=== PATIENT | male | born 1965 | race Caucasian/White ===

== ENCOUNTER → 2018-03-12 01:25 | Outpatient (CLI) | payer MEDICAID, SELFPAY ==
[2018-03-12] MEDS: Omnipaque 350 MG/ML 50 ML BTL IJ (08:31)
[2018-03-12] MEDS: Breeza Beverage 473 ML BTL PO ×2 (08:32)
--- NOTE | 2018-03-12 09:30 | DI.RPTCT_ITS ---
SYMPTOM/DIAGNOSIS: ABD PAIN R10.9, ? DIVERTICULAR DISEASE OR KIDNEY STONE LT SIDE CT ABDOMEN AND PELVIS: Images were performed before and after IV contrast. Oral contrast was administered prior to the exam. The noncontrast images show calcifications within calyces in the upper, mid and lower poles of the left kidney No ureteral or bladder calculi are seen. Right renal cysts are noted. The nephrograms are symmetric bilaterally. The prostate is enlarged. There is a small left fatty containing inguinal hernia. The liver shows fatty infiltration. The gallbladder, spleen, pancreas and adrenals are unremarkable. There is no bowel dilatation or inflammatory changes. There is no evidence of diverticulitis. The aorta shows mild calcification and is normal in diameter. Degenerative disc changes are noted greatest at L4-5. IMPRESSION: Nonobstructing left renal calculi. No evidence of diverticular disease.
[2018-03-12] MEDS: Omnipaque 350 MG/ML 100 ML BTL IJ (09:38)
== END ==
PROVIDERS: PCP Family Medicine; Visit Provider Neuromusculoskeletal Medicine & OMM
DX: R10.32 Left lower quadrant pain (principal); N20.0 Calculus of kidney; N40.0 Benign prostatic hyperplasia without lower urinary tract symptoms; K40.90 Unilateral inguinal hernia, without obstruction or gangrene, not specified as recurrent; K76.0 Fatty (change of) liver, not elsewhere classified
CPT/HCPCS: 74178; J3490; Q9967

== ENCOUNTER 2018-11-16 15:15 | Emergency (ER) | payer MEDICAID, SELFPAY ==
[2018-11-16 15:18] VITALS: BP 133/88; PULSE 81; RESP 18; TEMP 37.2; O2SAT 96
--- NOTE | 2018-11-16 15:29 | W.ED.GENAD ---
Discharge Plan Disposition Patient Disposition: HOME Condition: Improving Discharge Details Chief Complaint: EarProblem Clinical Impression: Impacted cerumen of left ear, Ear pain, left, Decreased hearing of left ear Primary Care Provider: Unknown,Unknown ED Provider: Laurence Jacinto Home Meds and New Rx's Prescriptions: New amoxicillin 500 mg capsule 500 mg PO TID 7 Days Qty: 21 RF: 0 Continued omeprazole 20 MG tablet,delayed release (DR/EC) 20 mg PO DAILY RF: 0 Discharge Instructions Instructions: Cerumen Impaction (ED), Earache (ED) Additional Instructions: Alternate Tylenol and Motrin as needed and directed for pain. Continue to use hydrogen peroxide or Debrox eardrops to help with softening earwax. If you have persistent or worsening pain even with removal of earwax, you may start the antibiotics. Follow-up with your primary care doctor as scheduled next week for reevaluation. Return to the emergency department with any worsening or concerning symptoms Discharge Data Discharge Physician: Laurence Jacinto Medical Decision Making 53-year-old male presents with decreased hearing in left ear for 5 days and left ear pain since yesterday. Vitals within normal limits. Patient appears nontoxic. There is bilateral cerumen impaction. No signs of otitis externa. Nurse attempted to soak ears with hydrogen peroxide cotton ball and then attempted to flush with saline and hydrogen peroxide with only minimal cerumen removed. Still unable to view L TM after flushing. No complaints with right ear. Discussed with patient that his pain could be due to pressure from the cerumen impaction or could be due to an otitis media. Patient feels some relief after some removal of cerumen. Patient instructed to continue hydrogen peroxide or Debrox drops to help soften the wax. If the symptoms do not improve or worsen, he can start the antibiotics. He is instructed to alternate Tylenol and Motrin, follow-up with his scheduled appointment with his primary care doctor next week and return here at any time with any concerns. HPI General Mode of arrival: ambulatory. Date/Time Provider Initiated Documentation: 11/16/18 15:15. Limitations to Documentation: no limitations. Information obtained by: patient. HPI Narrative: Pt is a 53yo M who presents to the ED with complaint of decreased hearing in L ear for the last 5 days and L ear pain since yesterday. 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 He states he also has an issue with cerumen impaction. Patient denies any fever, tenderness to the outside of the ear, or ear drainage. Related Data Home Medications Medication Instructions Recorded Confirmed omeprazole 20 mg PO DAILY 02/03/18 11/16/18 amoxicillin 500 mg PO TID 7 Days #21 cap 11/16/18 Previous Rx's Medication Instructions Recorded amoxicillin 500 mg PO TID 7 Days #21 cap 11/16/18 Allergies Allergy/AdvReac Type Severity Reaction Status Date / Time No Known Allergies Allergy Unverified 11/16/18 15:27 General Stated Complaint: EarProblem ELLE: 4 Review of Systems Review of Systems All systems reviewed & are unremarkable except as noted in HPI and below Constitutional Reports as per HPI, Denies chills and Denies fever(s) Eyes Denies blurry vision ENT Denies dizziness, Reports otalgia, Reports hearing loss, Denies sore throat and Denies throat swelling Cardiovascular Denies chest pain and Denies dyspnea Respiratory Denies cough and Denies dyspnea Gastrointestinal Denies abdominal pain, Denies diarrhea and Denies vomiting Genitourinary Denies hematuria and Denies dysuria Musculoskeletal Denies back pain and Denies numbness Integumentary/Breasts Denies lesions and Denies rash Neurologic Denies dizziness, Denies focal weakness and Denies numbness Allergic/Immunologic Denies throat swelling [facility] Medical History No significant past medical history (Acute) Surgical History No significant past surgical history (Acute) Social History Smoking/Tobacco Use Status: Never Alcohol Intake: current Alcohol Intake frequency: a few times a week Alcohol type: hard liquor Drug use: Never Do you feel safe at home: Yes Do you feel safe in your relationship?: Yes Exam Const General: cooperative, healthy appearing and no acute distress HENMT Head: normal to inspection Ears: hearing grossly normal bilaterally, external ears normal, EAC's normal (no tenderness to palpation of tragus or pulling auricle on Left), mastoids normal, no periauricular adenopathy, unable to visualize TM bilaterally and other (unable to view TM b/l due to cerumen impaction) General nose exam: external nose normal Face and sinus: normal facial exam Mouth: oral mucosae normal Teeth and gingiva: dentition normal Throat: posterior oropharynx normal Eyes General: appearance normal, both eyes and all related structures Neck Neck: normal visual inspection Resp Effort & Inspection: normal respiratory effort and able to speak in complete sentences Cardio Rate: regular rate Skin General skin exam: no rashes or lesions noted Neuro General: alert, awake and oriented x3 Motor: muscle tone normal throughout Extrem General: normal to inspection and full ROM Psych Appearance: grossly normal Affect: normal affect Course Vital Signs Temperature 99.0 F 11/16/18 15:18 Pulse 81 11/16/18 15:18 Respiratory Rate 18 11/16/18 15:18 Blood Pressure 133/88 11/16/18 15:18 Pulse Oximetry 96 11/16/18 15:18 Temperature 99.0 F 11/16/18 15:18 Temperature Source Skin 11/16/18 15:18 Pulse 81 11/16/18 15:18 Respiratory Rate 18 11/16/18 15:18 Respiratory Effort Non-Labored 11/16/18 15:22 Blood Pressure 133/88 11/16/18 15:18 Blood Pressure Position Sitting 11/16/18 15:18 Pulse Oximetry 96 11/16/18 15:18 Oxygen Delivery Method Room Air 11/16/18 15:18 Oxygen Flow Rate 0 11/16/18 15:18
--- NOTE | 2018-11-16 15:32 | ED.GENADUL_ITS ---
Discharge Plan Disposition Patient Disposition: HOME Condition: Improving Discharge Details Chief Complaint: EarProblem Clinical Impression: Impacted cerumen of left ear, Ear pain, left, Decreased hearing of left ear Primary Care Provider: Unknown,Unknown ED Provider: Laurence Jacinto Home Meds and New Rx's Prescriptions: New amoxicillin 500 mg capsule 500 mg PO TID 7 Days Qty: 21 RF: 0 Continued omeprazole 20 MG tablet,delayed release (DR/EC) 20 mg PO DAILY RF: 0 Discharge Instructions Instructions: Cerumen Impaction (ED), Earache (ED) Additional Instructions: Alternate Tylenol and Motrin as needed and directed for pain. Continue to use hydrogen peroxide or Debrox eardrops to help with softening earwax. If you have persistent or worsening pain even with removal of earwax, you may start the antibiotics. Follow-up with your primary care doctor as scheduled next week for reevaluation. Return to the emergency department with any worsening or concerning symptoms Discharge Data Discharge Physician: Laurence Jacinto Medical Decision Making 53-year-old male presents with decreased hearing in left ear for 5 days and left ear pain since yesterday. Vitals within normal limits. Patient appears nontoxic. There is bilateral cerumen impaction. No signs of otitis externa. Nurse attempted to soak ears with hydrogen peroxide cotton ball and then attempted to flush with saline and hydrogen peroxide with only minimal cerumen removed. Still unable to view L TM after flushing. No complaints with right ear. Discussed with patient that his pain could be due to pressure from the cerumen impaction or could be due to an otitis media. Patient feels some relief after some removal of cerumen. Patient instructed to continue hydrogen peroxide or Debrox drops to help soften the wax. If the symptoms do not improve or worsen, he can start the antibiotics. He is instructed to alternate Tylenol and Motrin, follow-up with his scheduled appointment with his primary care doctor next week and return here at any time with any concerns. HPI General Mode of arrival: ambulatory . Date/Time Provider Initiated Documentation: 11/16/18 15:15 . Limitations to Documentation: no limitations . Information obtained by: patient . HPI Narrative: Pt is a 53yo M who presents to the ED with complaint of decreased hearing in L ear for the last 5 days and L ear pain since yesterday. 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 He states he also has an issue with cerumen impaction. Patient denies any fever, tenderness to the outside of the ear, or ear drainage. Related Data Home Medications Medication Instructions Recorded Confirmed omeprazole 20 mg PO DAILY 02/03/18 11/16/18 amoxicillin 500 mg PO TID 7 Days #21 cap 11/16/18 Previous Rx's Medication Instructions Recorded amoxicillin 500 mg PO TID 7 Days #21 cap 11/16/18 Allergies Allergy/AdvReac Type Severity Reaction Status Date / Time No Known Allergies Allergy Unverified 11/16/18 15:27 General Stated Complaint: EarProblem ELLE: 4 Review of Systems Review of Systems All systems reviewed & are unremarkable except as noted in HPI and below Constitutional Reports as per HPI, Denies chills and Denies fever(s) Eyes Denies blurry vision ENT Denies dizziness, Reports otalgia, Reports hearing loss, Denies sore throat and Denies throat swelling Cardiovascular Denies chest pain and Denies dyspnea Respiratory Denies cough and Denies dyspnea Gastrointestinal Denies abdominal pain, Denies diarrhea and Denies vomiting Genitourinary Denies hematuria and Denies dysuria Musculoskeletal Denies back pain and Denies numbness Integumentary/Breasts Denies lesions and Denies rash Neurologic Denies dizziness, Denies focal weakness and Denies numbness Allergic/Immunologic Denies throat swelling [facility] Medical History No significant past medical history (Acute) Surgical History No significant past surgical history (Acute) Social History Smoking/Tobacco Use Status: Never Alcohol Intake: current Alcohol Intake frequency: a few times a week Alcohol type: hard liquor Drug use: Never Do you feel safe at home: Yes Do you feel safe in your relationship?: Yes Exam Const General: cooperative, healthy appearing and no acute distress HENMT Head: normal to inspection Ears: hearing grossly normal bilaterally, external ears normal, EAC's normal (no tenderness to palpation of tragus or pulling auricle on Left), mastoids normal, no periauricular adenopathy, unable to visualize TM bilaterally and other (unable to view TM b/l due to cerumen impaction) General nose exam: external nose normal Face and sinus: normal facial exam Mouth: oral mucosae normal Teeth and gingiva: dentition normal Throat: posterior oropharynx normal Eyes General: appearance normal, both eyes and all related structures Neck Neck: normal visual inspection Resp Effort & Inspection: normal respiratory effort and able to speak in complete sentences Cardio Rate: regular rate Skin General skin exam: no rashes or lesions noted Neuro General: alert, awake and oriented x3 Motor: muscle tone normal throughout Extrem General: normal to inspection and full ROM Psych Appearance: grossly normal Affect: normal affect Course Vital Signs Temperature 99.0 F 11/16/18 15:18 Pulse 81 11/16/18 15:18 Respiratory Rate 18 11/16/18 15:18 Blood Pressure 133/88 11/16/18 15:18 Pulse Oximetry 96 11/16/18 15:18 Temperature 99.0 F 11/16/18 15:18 Temperature Source Skin 11/16/18 15:18 Pulse 81 11/16/18 15:18 Respiratory Rate 18 11/16/18 15:18 Respiratory Effort Non-Labored 11/16/18 15:22 Blood Pressure 133/88 11/16/18 15:18 Blood Pressure Position Sitting 11/16/18 15:18 Pulse Oximetry 96 11/16/18 15:18 Oxygen Delivery Method Room Air 11/16/18 15:18 Oxygen Flow Rate 0 11/16/18 15:18
== END 2018-11-16 16:27 | disposition home or self-care (01) ==
PROVIDERS: Emergency Provider Physician Assistant
DX: H91.92 Unspecified hearing loss, left ear (principal); H92.02 Otalgia, left ear; H61.23 Impacted cerumen, bilateral
CPT/HCPCS: 69209; 99283

== ENCOUNTER 2021-06-14 20:57 | Outpatient (REF) | payer MEDICAID, SELFPAY ==
[2021-06-14 23:52] LABS: C Diff PCR Negative (Negative)
[2021-06-15 21:34] LABS: Campylobacter PCR Negative (Negative); Salmonella PCR Negative (Negative); Shiga Toxin PCR Negative (Negative); Shigella/Enteroinvasive Ecoli Negative (Negative)
== END 2021-06-14 20:58 | disposition home or self-care (01) ==
LOC: LBN 20:57
PROVIDERS: PCP Neuromusculoskeletal Medicine & OMM; Visit Provider Surgery
DX: K52.9 Noninfective gastroenteritis and colitis, unspecified; R10.32 Left lower quadrant pain; R14.0 Abdominal distension (gaseous)
CPT/HCPCS: 87493; 87505; 87177

== ENCOUNTER 2021-06-20 02:20 | Outpatient (CLI) | payer MEDICAID, SELFPAY ==
--- OUTSIDE RECORDS SUMMARY | 2021-06-20 02:22 | XMS_ITS | Encounter Summary ---
:1965 Author Care Team Providers Name Role Phone Fabio Arias DO Primary Care Provider Unavailable Reason for Visit Pain of right shoulder joint; Gastroesop hageal reflux disease; skin lesion; suture removal Assessment and Plan 1. Pain of right shoulder joint Slightly better with steroid b ut massage really helped. He is scheduled for another. Stretches reviewed. Overall imp roved. 2. Gastroesophageal reflux disea se Lengthy discussion about his g astroesophageal reflux disease. He states he takes Dexilant 30 mg daily but at times he needs to take 60 mg noted provide him with relief. I stated that every onc e in a while that is okay but really nee ds to stay with 30 mg. We discussed dietary habits along with stress and anxiety as a possible source of his reflux. I do not see that he has a hiatal hernia. Ult imately I think he needs an EGD to see i f he has the beginnings of Dodd's esophagus. At the end of the visit he did note that he went on the Omni diet several years ago and that his reflux disappeare d. I strongly suggest that if he can fin d a dietary plan that helps relieve his reflux and provide him with a nutrition and energy throughout the day that he needs that he should go back to that and slo wly add or subtract what he needs to fritz p the reflux under control. He agrees that this might be a good idea and will try it. In the meantime will refer him to a surgeon to see if they are in agreement that a possible EGD will be recommended. I did offer barium swallow but I am not sure if this would identify beginnings of Dodd's esophagus. Kee states that he has had reflux most of his life. ? surgery center referral 3. Removal of suture 4 sutures removed from last we ek's procedure. Removed without difficulty. Wound looks to be well-healed. He knows to call should by chance the incision reopen or become infected. Discussion Note: None recorded.Patient educational handouts: No information available. Plan of Care Reminders Provider Appointments None ? ? recorded. Lab None ? ? recorded. Referral [facility] Referral 04/13/2021 Group Procedures None ? ? recorded. Surgeries None ? ? recorded. Imaging None ? ? recorded. Medications Name Start Date ? ? cyclobenzaprine 5 mg tablet ? TAKE ONE TO TWO TABLETS BY MOUTH AT BEDTIME FOR MUSCL E SPASMS Dexilant 30 mg capsule, delayed release ? TAKE ONE CAPSULE BY MOUTH EVERY DAY Medications Administered None recorded. Vitals Weight Blood Pressure 184 lbs 124/78 mm[Hg] Results Lab Results None recorded. Allergies Code Code System Name Reaction Severity Onset NKDA ? ? ? Problems Name Status Onset Date Source ? Cellulitis of Face Active 05/09/2019 ? Depressive Disorder Active ? History Allergic Rhinitis Active ? History Gastroesophageal Reflux Disease Active ? History Hyperplasia of Prostate Active ? History Neck Pain Active ? History Low Back Pain Active ? History Abdominal Pain Active ? History Pain of Right Shoulder Joint Active ? His tory Impotence of Organic Origin Active ? Hist ory Procedures None recorded. Vaccine List Vaccine Type Td (adult), adsorbed 07/23/2000 Tdap 01/21/2013 Social History Tobacco Smoking Status Never Smoker What was the date of your most recent tobacco screening? What is your code status? 0 Functional Status Unknown. Past Encounters 04/13/2021 Pain of Right Shoulder Joint; Gastroesop hageal Reflux Disease; Removal of Suture Fabio Arias, DO: [address] [place] [address], Ph. 04/06/2021 Pain of Right Shoulder Joint; Lipoma of Skin Fabio Arias, DO: [address] [place] [address], Ph. 03/23/2021 Neck Pain; Gastroesophageal Reflux Disea se; Pain of Right Shoulder Joint; Abdominal Pain; Impacted Cerumen of Bilateral Ears; Sebaceous Cyst of Skin Fabio Villegas Juana, DO: [address] [place] [address], Ph. History of Present Illness ? Reflux/GERD Reported By: Patient HPI: Symptoms heartburn. Severity : same. Context: non-smoker. Alleviating Factors: medication Notes: Ongoing. Remotely/relatively controlled by the use of Dexilant. ? Cyst Reported By: Patient HPI: Location: neck. Size ; Lipom a which was removed last week. Healing well. Needs sutures removed today. Symptoms not painful, no redness ? Shoulder Reported By: Patient HPI: Hand Dominance: right. Locat ion: right. Quality: throbbing. Duration: weeks. Timing: acute. Contex t: overuse. Aggravating Factors: ROM. Associated Symptoms: no numb ness, no tingling, radiation down arm Notes: Improving with massage Note: Follow up appt today for suture removal.

Review of Systems: ROS as noted in the HPI Review of Systems ? Comprehensive General Adult ROS Reported By: Patient Cardiovascular: Cardiovascular: no chest demar n, no shortness of breath when walking, no shortness of breath when lying down, no palpitations Respiratory: Respiratory: no cough, no wh eezing, no shortness of breath Gastrointestinal: Gastrointestinal: GERD; Long standing reflux that is helped by utilizing Dexilant 30 mg onc e a day. On occasion he uses 2 which helps. He is question if he could go to every day Genitourinary: Genitourinary: no incontinen ce, no difficulty urinating, no increased frequency Musculoskeletal: Musculoskeletal: no arthralg ias/joint pain, no back pain, no swelling in the extremities Psychiatric: Psych: no depression, no anx iety, no memory loss, no agitation Physical Exam ? Comprehensive PE (male) Reported By: Patient Constitutional: General Appearance: healthy- appearing, well-nourished, well-developed. Level of Dis tress: no apparent distress. Ambulation: ambulating normally Skin: Inspection and palpation: le stefany; Sutures are ready to removed today, mild erythema but no sign of infection, skin well approximated and healing Neurologic: Orientation: oriented to per son, place, time and situation. Memory: recent memory normal, remote memory normal Psychiatric: Insight: good insight, good judgment. Mental Status: normal mood, normal affect
--- OUTSIDE RECORDS SUMMARY | 2021-06-20 02:22 | XMS_ITS | Encounter Summary ---
:1965 Author Care Team Providers Name Role Phone Fabio Arias DO Primary Care Provider Unavailable Reason for Visit Pain of right shoulder joint; Gastroesop hageal reflux disease; cyst/abscess Assessment and Plan 1. Pain of right shoulder joint Slightly better with steroid b ut massage really helped. He is scheduled for another. Stretches reviewed. Overall imp roved. 2. Lipoma of skin Left upper trapezius region. M edial upper scapula. Lipoma. Removed without incident. Return in 5 to 7 days for sutu re removal Discussion Note: None recorded.Patient educational handouts: No information available. Plan of Care Reminders Provider Appointments None ? ? recorded. Lab None ? ? recorded. Referral None ? ? recorded. Procedures None ? ? recorded. Surgeries None ? ? recorded. Imaging None ? ? recorded. Medications Name Start Date ? ? cyclobenzaprine 5 mg tablet ? TAKE ONE TO TWO TABLETS BY MOUTH AT BEDTIME FOR MUSCL E SPASMS Dexilant 30 mg capsule, delayed release ? TAKE ONE CAPSULE BY MOUTH EVERY DAY Medications Administered None recorded. Vitals Weight Blood Pressure 182 lbs 16 oz 128/80 mm[Hg] Results Lab Results None recorded. Allergies [...] status? 0 Functional Status Unknown. Past Encounters 04/06/2021 Pain of Right Shoulder Joint; Lipoma of Skin Fabio Arias, DO: [address] [place] [address], [place] [address], Ph. 03/23/2021 Neck Pain; Gastroesophageal Reflux Disea se; Pain of Right Shoulder Joint; Abdominal Pain; Impacted Cerumen of Bilateral Ears; Sebaceous Cyst of Skin Fabio Nelly Arias, DO: [address] [place] [address], [place] [address], Ph. History of Present Illness ? Cyst Reported By: Patient HPI: Location: neck. Size increas ing in size. Symptoms not painful, no redness, drainage Note: Follow up appt today.Review of Systems: ROS as noted in the HPI Review of Systems None recorded. Physical Exam ? Comprehensive PE (male) Reported By: Patient Constitutional: General Appearance: healthy- appearing, well-nourished, well-developed. Level of Dis tress: no apparent distress. Ambulation: ambulating normally Skin: Inspection and palpation: le stefany; lipoma on the left upper back over the medial upper scapula reg ion Neurologic: Orientation: oriented to per son, place, time and situation. Memory: recent memory normal, remote memory normal Psychiatric: Insight: good insight, good judgment. Mental Status: normal mood, normal affect
--- OUTSIDE RECORDS SUMMARY | 2021-06-20 02:22 | XMS_ITS | Encounter Summary ---
:1965 Author Care Team Providers Name Role Phone Faibo Arias DO Primary Care Provider Unavailable Reason for Visit Gastroesophageal reflux disease; Right s houlder problem Assessment and Plan 1. Neck pain Gentle stretching.Demonstrated in depth. Patient to do these several times a day. Return to clinic in 2 weeks 2. Gastroesophageal reflux disea se Dion seems to be working. Co ntinue as needed. Check H. pylori breath test. ? H pylori urea breath test, co2 infrared 3. Pain of right shoulder joint Trial of prednisone and a musc le relaxant. This will also help with the neck. Exam is relatively benign. Again s carmenza demonstrated. ? prednisone 50 mg tablet ? cyclobenzaprine 5 mg table t 4. Abdominal pain labs ordered and drawn today. Consideration for muscular imbalance vs GERd vs adhesions. Patient has had this abdom inal pain for several years. He notes it improves drastically when he gets on his rowing machine. I am of the belief after the exam that he has a muscular skeletal and balance wearing his abdominal muscles due to the nature of his work are more taut john n his back muscles. I think this causes of imbalance which radiates into the abdome n his pain. His exam is relatively benign. Reviewed the CAT scan that he had over a year ago which showed no current pathology. We will recheck his labs. He was spent 3 weeks on his rowing machine and see if his abdominal pain resolves and if so when h e has his answer. If not we can continue to investigate. There is always a question of adhesions but it is quite doubtful. ? hepatic function panel, se rum ? venipuncture 5. Impacted cerumen of bilateral ears Removal of impacted cerumen. ? cerumen removal (PROC) - U nsuccessful bilaterally. Told to get debrox 6. Sebaceous cyst of skin On the back. Discussion Note: None recorded.Patient educational handouts: No information available. Plan of Care Reminders Provider Appointments None recorded. ? ? Lab H Pylori Urea Nor Country Breath Test, Co2 Infrared 03/23/2021 Hospit al Lab (Internal) ? Hepatic North Cou ntry Function Panel, Serum 03/23/2021 Hospital L ab (Internal) ? Venipuncture P_nc Primary 03/23/2021 Care [place] [facility] Referral None recorded. ? ? Procedures Cerumen Removal ? (PROC) 03/23/2021 Surgeries None recorded. ? ? Imaging None recorded. ? ? Medications Name Start Date ? ? cyclobenzaprine 5 mg tablet ? TAKE ONE TO TWO TABLETS BY MOUTH AT BEDTIME FOR MUSCL E SPASMS Dexilant 30 mg capsule, delayed release ? TAKE ONE CAPSULE BY MOUTH EVERY DAY Medications Administered None recorded. Vitals Weight Blood Pressure 181 lbs 16 oz 120/80 mm[Hg] Results Lab Results Date Name Specimen Result Interpretation Description Value Range Status Address ? 03/23/2021 Hepatic S ? Tbil 0.8 mg/dL 0.2-1.3 Final N orth Function mg/dL Country Panel, Serum Hosp ital Lab (Internal) : [address] ? ? S ? Dbil 0.0 mg/dL 0.0-0.3 Final North mg/dL [facility] L ab (Internal) : [address] ? ? S ? Alp 66 U/L 50-136 Final [place] U/L [facility] L ab (Internal) : [address] ? ? S ? Alt (Sgpt) 48 U/L 21-72 Final [place] U/L [facility] L ab (Internal) : [address] t ? ? S ? Ast (Sgot) 34 U/L 17-59 Final [place] U/L [facility] L ab (Internal) : [address] t ? ? S ? Ggt 55 U/L 15-73 Final [place] U/L [facility] L ab (Internal) : [address] ? ? S ? Tp 7.2 g/dL 6.3-8.2 Final North g/dL [facility] L ab (Internal) : [address] ? ? S ? Alb 4.4 g/dL 3.5-5.0 Final North g/dL [facility] L ab (Internal) : [address] 03/23/2021 Venipuncture Blood ? Location Left ? ? P_nc Primary venous Antecubital Care [place]: [address], [place] ? ? Blood ? Needle 21g ? ? P_nc Prim brandy venous Vacutainer Care [place]: [address] [facility], [place] ? ? Blood ? Number of 1 ? ? P_nc P rimary venous Attempts Care [place]: [address] [facility] [address], [place] ? ? Blood ? Successful Yes ? ? P_nc Primary venous Care [place]: [address] [facility], [place] ? ? Blood ? Dressing Pressure ? ? P_nc Primary venous Band-aid Care Applied [place]: [address] [facility], [place] Allergies Code Code System Name Reaction Severity [...] status? 0 Functional Status Unknown. Past Encounters 03/23/2021 Neck Pain; Gastroesophageal Reflux Disea se; Pain of Right Shoulder Joint; Abdominal Pain; Impacted Cerumen of Bilateral Ears; Sebaceous Cyst of Skin Fabio Arias, DO: [address] [place] [address], Ph. History of Present Illness ? Reflux/GERD Reported By: Patient HPI: Symptoms heartburn. Severity : worsening. Context: non-smoker ? Shoulder Reported By: Patient HPI: Hand Dominance: right. Locat ion: right. Quality: throbbing. Duration: 1 weeks. Timing: acute. Contex t: overuse. Alleviating Factors: nothing helps. Aggravating Factors: ROM. Associated Symptoms: no numbness, no tingling, radiation down arm Review of Systems: ROS as noted in the HPI Review of Systems None recorded. Physical Exam ? Comprehensive PE (male) Reported By: Patient Constitutional: General Appearance: healthy- appearing, well-nourished, well-developed. Level of Dis tress: no apparent distress. Ambulation: ambulating sharon lly Respiratory: Respiratory effort: unlabore d respirations, no use of accessory muscles. RUL Auscultation: b reath sounds normal, good air movement, clear to auscultation except as noted, no wheezing, no rales/crackles, no rhonchi. RLL Auscultation: breath sounds normal, good air movement, clear to auscultation except as noted, no wheezing, no rales/crackles, no rhonchi. CARLA Auscultation: breath sounds normal, good air move ment, clear to auscultation except as noted, no wheezing, no rales /crackles, no rhonchi. LLL Auscultation: breath sounds normal, good air movement, clear to auscultation except as noted , no wheezing, no rales/crackles, no rhonchi Cardiovascular: Apical Impulse: not displace d. Heart Auscultation: regular rate and rhythm (RRR), normal S1, nor mal S2, no murmurs, no rubs, no gallops. Neck vessels: no ca rotid bruits. Pulses including femoral / pedal: normal throughout Gastrointestinal: Bowel Sounds: LLQ bowel soun ds normal, LUQ bowel sounds normal, RUQ bowel sounds normal, RLQ bow el sounds normal. Inspection and Palpation: LLQ no mass, LLQ rebound tenderness, LLQ guarding, epigastric tenderness, supra pubic tenderness, costovertebral (CVA) tenderness: left; No masses palpated pulsatile or otherwise. Mild rebound in the left lower qu adrant.. Liver: non-tender. Spleen: non-tender. Hernia: none pal pable Male : Penis: no lesion, no dischar ge. Scrotum: no tenderness of cord, no hydrocele, no spermatocele, no varicocele, no testicular mass Musculoskeletal:: Motor Strength and Tone: nor mal tone. Joints, Bones, and Muscles: ; Right shoulder with full ran ge of motion. Good muscle strength. Good sensation. Excellent gr ip strength. Reflexes intact.Neck with full range of motion some hy pertonicity of the paracervical muscles but otherwise no crepitance no palpable step-off of the midline. Extremities: no edema Skin: Inspection and palpation: ; Sebaceous cyst on right upper chest roughly 1 cm in diameter. Neurologic: Orientation: oriented to per son, place, time and situation. Memory: recent memory normal, remote memory normal Psychiatric: Insight: good insight, good judgment. Mental Status: normal mood, normal affect
--- OUTSIDE RECORDS SUMMARY | 2021-06-20 02:22 | XMS_ITS ---
:1965 Author Care Team Providers Name Role Phone BEATRIZ WHEELER, DO Primary Care Provider Unavailable Allergies Code Code System Name Reaction Severity Status Onset NKDA ? Medications Name Status Start Date Stop Date ? ? amoxicillin 875 mg tablet Completed ? 2018 Take 1 tablet every 12 hours by oral route for 10 days. Augmentin 875 mg-125 mg tablet Completed ? 08/17/2018 Take 1 tablet every 12 hours by oral route for 7 days. cyclobenzaprine 5 mg tablet Active ? Not available TAKE ONE TO TWO TABLETS BY MOUTH AT BEDTIME FOR MUSCLE SPASMS Dexilant 30 mg capsule, delayed release Active ? Not available TAKE ONE CAPSULE BY MOUTH EVERY DAY dicyclomine 20 mg tablet Completed ? 019 Take 1 tablet 4 times a day by oral route for 30 days. erythromycin 5 mg/gram (0.5 %) eye ointment Completed 07/2408/25/2011 1 Ointment: q 3hrs see comments loratadine 10 mg tablet Completed 06/14/2011 08/18/19 12 1 Tablet: as needed nabumetone 500 mg tablet Completed 05/30/2012 013 1 (one) Tablet: bid with meals omeprazole Completed ? 05/06/2019 omeprazole 20 mg capsule,delayed release Completed 011 08/18/[address]: daily prednisone 50 mg tablet Completed ? 04/13/20 21 TAKE ONE TABLET BY MOUTH EVERY DAY FOR 5 DAYS Prozac 20 mg capsule Completed 06/14/2011 08/18/2011 1 Capsule: daily sumatriptan 50 mg tablet Completed ? 019 Take 1 tablet by oral route for 20 days. Problems Name Status Onset Date Source ? [...] Organic Origin Active ? Hist ory Procedures Date Name Performed by ? 02/25/2018 CT, Abdomen + Pelvis, W/wo Contrast Nort h [facility] Radiology (Internal) [address] [place] [id number] (Work Place) Results Lab Results Date Name Specimen Result Interpretation Description Value Range Status Address ? 03/23/2021 Hepatic S ? Tbil 0.8 mg/dL 0.2-1.3 Final N orth Function mg/dL [facility] Panel, Serum Hosp ital Lab (Internal) : [address] ? ? S ? Dbil 0.0 mg/dL 0.0-0.3 Final North mg/dL [facility] L ab (Internal) : [address] ? ? S ? Alp 66 U/L 50-136 Final [place] U/L [facility] L ab (Internal) : [address] ? ? S ? Alt 48 U/L 21-72 U/L Final [place] (Sgpt) [facility] L ab (Internal) : [address] ? ? S ? Ast 34 U/L 17-59 U/L Final [place] (Sgot) [facility] L ab (Internal) : [address] ? ? S ? Ggt 55 U/L 15-73 U/L Final [facility] L ab (Internal) : [address] ? ? S ? Tp 7.2 g/dL 6.3-8.2 Final North g/dL [facility] L ab (Internal) : [address] ? ? S ? Alb 4.4 g/dL 3.5-5.0 Final North g/dL [facility] L ab (Internal) : [address] 03/23/2021 Venipuncture Blood ? Location Left ? ? P_nc Primary venous Antecubita Care l [place]: [address], [place] ? ? Blood ? Needle 21g ? ? P_nc Prim brandy venous Vacutainer Care [place]: [address], [place] ? ? Blood ? Number 1 ? ? P_nc Prim brandy venous of Care Attempts [place]: [address], [place] ? ? Blood ? Successf Yes ? ? P_nc Pr imary venous ul Care [place]: [address] [facility], [place] ? ? Blood ? Dressing Pressure ? ? P_nc Primary venous Band-aid Care Applied [place]: [address] [place] 04/10/2018 Fecal Occult ? Occult negative ? ? P_nc Primary Blood X 3, Blood 1 Care Stool [place]: [address] [facility], [place] ? ? ? Occult negative ? ? P_nc Pr imary Blood 2 Care [place]: [address] [facility], [place] ? ? ? Occult negative ? ? P_nc Pr imary Blood 3 Care [place]: [address] [facility] [place] 04/09/2018 Iga, S - Iga 128 mg/dL 85-499 Final Nor th Quantitative, mg/dL Cou ntr Serum Hospital L ab (Internal) : [address] 04/09/2018 Tissue S - Tissue <1.2 U/mL <4.0 Final No rth Transglutamina Transglut (negative Country se IgA Ab, aminase ) U/mL Hospi chyna Lab Quantitative, Ab, IgA, ( Internal): Serum S [address] 04/09/2018 Venipuncture Blood ? Location Left ? ? P_nc Primary venous Antecubita Care l [place]: [address] [facility], [place] ? ? Blood ? Needle 21g ? ? P_nc Prim brandy venous Vacutainer Care [place]: [address] [facility], [place] ? ? Blood ? Number 1 ? ? P_nc Prim brandy venous of Care Attempts [place] ns: [address] [facility], [place] ? ? Blood ? Successf No ? ? P_nc Pr imary venous ul Care [place]: [address] [facility], [place] ? ? Blood ? Dressing Pressure ? ? P_nc Primary venous Band-aid Care Applied [place]: [address] [facility] [place] 02/22/2018 CBC W/ Auto BLD - Wbc 6.0 5.0-10.0 Final North Diff 10*3/uL 10*3/uL [facility] L ab (Internal) : [address] ? ? BLD - Rbc 5.39 4.60-6.00 Final [place] 10*6/uL 10*6/uL [facility] Hospital L ab (Internal) : [address] ? ? BLD - Hgb 16.2 g/dL 14.0-18.0 Final Nort h g/dL [facility] Hospital L ab (Internal) : [address] ? ? BLD - Hct 48.6 % 41.0-51.0 Final [facility] Hospital L ab (Internal) : [address] ? ? BLD - Mcv 90.2 fL 80.0-96.0 Final [facility] Hospital L ab (Internal) : [address] ? ? BLD - Mch 30.1 pg 26.0-32.0 Final [facility] Hospital L ab (Internal) : [address] ? ? BLD - Mchc 33.3 g/dL 31.0-35.0 Final Nort h g/dL [facility] Hospital L ab (Internal) : [address] ? ? BLD - Rdw 12.7 % 11.5-14.5 Final [facility] Hospital L ab (Internal) : [address] ? ? BLD - Plt 247 130-450 Final [place] 10*3/uL 10*3/uL [facility] Hospital L ab (Internal) : [address] ? ? BLD - Anc 3.12 ? Final [place] 10*3/uL [facility] Hospital L ab (Internal) : [address] ? ? BLD - Neutro 52.2 % 40.0-75.0 Final [facility] Hospital L ab (Internal) : [address] ? ? BLD - Lymph 35.3 % 20.0-50.0 Final [facility] Hospital L ab (Internal) : [address] ? ? BLD - [place] 8.0 % 2.0-10.0 Final [facility] Hospital L ab (Internal) : [address] ? ? BLD - Eos 3.2 % 1.0-6.0 % Final [facility] Hospital L ab (Internal) : [address], [place] ? ? BLD - Baso 1.0 % 0.0-1.0 % Final [facility] Hospital L ab (Internal) : [address] ? ? BLD - Ig 0.3 % 0.0-0.9 % Final [facility] Hospital L ab (Internal) : [address] 02/22/2018 CMP, Serum or S - g/r 96 mg/dL 74-106 Maureen l North Plasma mg/dL [facility] L [facility] (Internal) : [address] ? ? S - Bun 14 mg/dL 9-20 Final North mg/dL [facility] (Internal) : [address] ? ? S - Crea 0.70 mg/dL 0.66-1.25 Final Nor th mg/dL [facility] (Internal) : [address] ? ? S - Ca 9.2 mg/dL 8.4-10.2 Final North mg/dL [facility] (Internal) : [address] ? ? S - Na 140 mmol/L 137-145 Final North mmol/L [facility] (Internal) : [address] ? ? S - K 4.2 mmol/L 3.5-5.1 Final [place] mmol/L [facility] (Internal) : [address] ? ? S - Cl 106 mmol/L 98-107 Final North mmol/L [facility] Hospital L ab (Internal) : [address] ? ? S - Tco2 27.0 22.0-30.0 Final North mmol/L mmol/L [facility] L [facility] (Internal) : [address] ? ? S - Tp 7.0 g/dL 6.3-8.2 Final [place] g/dL [facility] L [facility] (Internal) : [address] ? ? S - Alb 4.4 g/dL 3.5-5.0 Final [place] g/dL [facility] (Internal) : [address] ? ? S - Tbil 0.7 mg/dL 0.2-1.3 Final North mg/dL [facility] L [facility] (Internal) : [address] ? ? S - Alp 67 U/L 50-136 Final North U/L [facility] L ab (Internal) : [address] ? ? S - Alt 52 U/L 21-72 U/L Final [place] (Sgpt) [facility] L ab (Internal) : [address] ? ? S - Ast 45 U/L 17-59 U/L Final [place] (Sgot) [facility] Hospital L ab (Internal) : [address] 02/22/2018 Urinalysis, UR - UA-color yellow pale Final [place] Dipstick, yellow Country Reflex Micro Hosp ital Lab (Internal) : [address] ? ? UR - UA-appea clear clear Final [place] r [facility] L ab (Internal) : [address] ? ? UR - UA-spec 1.010 1.003-1.0 Final [place] Grav 35 [facility] L ab (Internal) : [address] ? ? UR - UA-pH 7.5 [pH] 4.6-8.0 Final [place] [pH] [facility] Hospital L ab (Internal) : [address] ? ? UR - UA-leuk negative negative Final Nort h Est [facility] L ab (Internal) : [address] ? ? UR - UA-nitri negative negative Final Nor th te [facility] Hospital L ab (Internal) : [address] ? ? UR ABNORM UA-prot trace negative Final [facility] Hospital L ab (Internal) : [address] ? ? UR - UA-gluc negative negative Final Nort h [facility] L ab (Internal) : [address] ? ? UR - UA-keton negative negative Final Nor th e [facility] Hospital L ab (Internal) : [address] ? ? UR ABNORM UA-urobi positive normal Final [facility] L ab (Internal) : [address] ? ? UR - UA-bili negative negative Final Nort h [facility] L ab (Internal) : [address] ? ? UR - UA-blood negative negative Final Nor [facility] L ab (Internal) : [address] 02/22/2018 Urinalysis, UR - UA-WBC 0-3 [hpf] 0-3 [hpf] F [facility] Microscopic Count Hospital L ab (Internal) : [address] ? ? UR - UA-RBC 0-2 [hpf] 0-2 [hpf] Final Nor [facility] Hospital L ab (Internal) : [address] ? ? UR - UA-bacte rare [hpf] none seen Final [place] amy [hpf] [facility] L ab (Internal) : [address] ? ? UR - UA-epith rare [hpf] none seen Final [place] elial [hpf] [facility] L ab (Internal) : [address] ? ? UR ABNORM UA-mucus moderate none seen Final No rth AL [hpf] [hpf] [facility] L ab (Internal) : [address] 02/22/2018 PSA, Serum or S - Psa, T 1.4 NG/mL 0.0-4.0 F [facility] Plasma NG/mL [facility] L ab (Internal) : [address] ? Venipuncture ? Location Right ? ? P _nc Primary Antecubita Care l [place]: [address] [facility], [place] ? ? ? Needle 21g ? ? P_nc Prim brandy Vacutainer Care [place]: [address] [facility], [place] ? ? ? Number 1 ? ? P_nc Prim brandy of Care Attempts [place]: [address] [facility], [place] ? ? ? Successf Yes ? ? P_nc Pr imary ul Care [place]: [address] [facility], [place] ? ? ? Dressing Pressure ? ? P_nc Primary Band-aid Care Applied [place]: [address] [facility], [place] ? ? ? Initials LMK ? ? P_nc Pr imary Care [place]: [address] [facility], [place] Past Encounters 04/13/2021 Pain of Right Shoulder Joint; Gastroesop hageal Reflux Disease; Removal of Suture Beatriz Wheeler, DO: [address] [place] [address], Ph. 04/06/2021 Pain of Right Shoulder Joint; Lipoma of Skin Beatriz Wheeler, DO: [address] [place] [address], Ph. 03/23/2021 Neck Pain; Gastroesophageal Reflux Disea se; Pain of Right Shoulder Joint; Abdominal Pain; Impacted Cerumen of Bilateral Ears; Sebaceous Cyst of Skin Beatriz Wheeler, DO: [address] [place] [address], Ph. Social History Tobacco Smoking Status Never Smoker Vaccine List Vaccine Type Td (adult), adsorbed 07/23/2000 Tdap 01/21/2013 Plan of Care Reminders Provider Appointments None ? ? recorded. Lab None ? ? recorded. Referral None ? ? recorded. Procedures None ? ? recorded. Surgeries None ? ? recorded. Imaging None ? ? recorded. Vitals 04/13/2021 08:40AM Follow Up 20 Weight Blood Pressure 83.46 kg 124/78 mm[Hg] 04/06/2021 03:40PM Follow Up 20 Weight Blood Pressure 83.01 kg 128/80 mm[Hg] 03/23/2021 09:40AM CPE 20 Weight Blood Pressure 82.55 kg 120/80 mm[Hg] 06/17/2019 08:40AM Follow Up 20 Height Blood Pressure 175.26 cm 124/78 mm[Hg] 05/06/2019 12:40PM Follow Up 20 Height Weight BMI Blood Pressure 175.26 cm 83.01 kg 27 kg/m2 130/80 mm[Hg] 11/18/2018 03:20PM Same Day 20 Height Weight BMI Blood Pressure 175.26 cm 83.01 kg 27 kg/m2 120/80 mm[Hg] 11/15/2018 04:20PM Acute 20 Height Blood Pressure 175.26 cm 122/86 mm[Hg] 04/09/2018 03:40PM Follow Up 20 Height Weight BMI Blood Pressure 175.26 cm 83.01 kg 27 kg/m2 120/78 mm[Hg] 04/03/2018 04:00PM Procedure 40 Height Weight BMI Blood Pressure 175.26 cm 83.91 kg 27.3 kg/m2 120/80 mm[Hg] 03/14/2018 07:20AM Follow Up 20 Height Weight BMI Blood Pressure 175.26 cm 84.37 kg 27.5 kg/m2 120/84 mm[Hg] 02/20/2018 04:00PM Acute 20 Height Weight BMI 175.26 cm 83.01 kg 27 kg/m2 12/10/2012 Weight Blood Pressure 83.91 kg 118/76 mm[Hg] 11/26/2012 Height Weight Blood Pressure 175.26 cm 85.73 kg 122/86 mm[Hg] 05/30/2012 Blood Pressure 124/84 mm[Hg] 05/16/2012 Weight Blood Pressure 85.73 kg 120/82 mm[Hg] 08/18/2011 Height Weight Blood Pressure 173.99 cm 84.37 kg 118/84 mm[Hg]
[2021-06-20 08:49] LABS: Abs Immature Grans 0.03 10^3/uL (0.0-0.06); Absolute Basophil Count 0.06 10^3/uL (0.0-0.2); Absolute Eosinophil Count 0.13 10^3/uL (0.0-0.7); Absolute Lymphocyte Count 2.37 10^3/uL (1.2-3.4); Absolute Neutrophil Count 3.19 10^3/uL (1.2-6.7); Eosinophils % 2.1; HCT 50.4 % (40.0-50.0); Immature Grans % 0.5; Lymphocytes % 38.3; MCH 30.5 pg (27.0-33.0); MCHC 33.7 % (32.0-36.0); MCV 90.3 fL (80-95); MPV 10.8 fL (8.0-11.0); Monocytes % 6.5; Neutrophils % 51.6; Nucleated RBC 0 %; Platelet Count 195 10^3/uL (130-400); RBC 5.58 10^6/uL (4.36-5.78); RDW 12.2 % (11.8-14.1); RDW-SD 40.7 fL; WBC 6.18 10^3/uL (4.4-10.8)
[2021-06-20 09:02] LABS: Hemoglobin A1C 5.4 % (<5.7)
[2021-06-20 09:29] LABS: BUN 16 mg/dL (7-18); C-Reactive Protein 0.21 mg/dL (0.0-0.3); CREATININE 0.8 mg/dL (0.70-1.30); Calcium 9.3 mg/dL (8.5-10.1); Chloride 104 mmol/L (98-107); Glucose 91 mg/dL (74-106); Potassium 4.4 mmol/L (3.5-5.1); Sodium 141 mmol/L (136-145)
[2021-06-22 15:13] LABS: Baker's Yeast, IgE <0.35 kU/L; Banana, IgE <0.35 kU/L; Barley, IgE <0.35 kU/L; Beef IgE <0.35 kU/L; Black/White Pepper IgE <0.35 kU/L; Broccoli IgE <0.35 kU/L; Cacao/Cocoa, IgE <0.35 kU/L; Cinnamon, IgE <0.35 kU/L; Corn-Food IgE <0.35 kU/L; Egg Whole IgE <0.10 kU/L; Milk, IgE <0.35 kU/L; Onion, IgE <0.35 kU/L; Soybean IgE <0.35 kU/L; Strawberry, IgE <0.35 kU/L; White Potato, IgE <0.35 kU/L
== END 2021-06-20 02:21 | disposition home or self-care (01) ==
LOC: LBO 02:20
PROVIDERS: PCP Neuromusculoskeletal Medicine & OMM; Visit Provider Surgery
DX: K52.9 Noninfective gastroenteritis and colitis, unspecified; Z83.3 Family history of diabetes mellitus; R14.0 Abdominal distension (gaseous); R10.32 Left lower quadrant pain
CPT/HCPCS: 36415; 80048; 86003; 83036; 83735; 85025; 86140

== ENCOUNTER 2021-06-20 02:58 | Outpatient (CLI) | payer MEDICAID, SELFPAY ==
[2021-06-20 10:44] LABS: Source Nasal/Nares
[2021-06-20 13:34] LABS: COVID-19 PCR Negative (Negative)
== END 2021-06-20 02:59 | disposition home or self-care (01) ==
LOC: LBO 02:58
PROVIDERS: PCP Neuromusculoskeletal Medicine & OMM; Visit Provider Surgery
DX: Z20.822 Contact with and (suspected) exposure to COVID-19 (principal)
CPT/HCPCS: 87635

== ENCOUNTER 2021-06-21 10:46 | Day surgery (SDC) | payer MEDICAID, SELFPAY ==
[2021-06-21 10:55] VITALS: BP 135/97; PULSE 76; RESP 18; TEMP 36.9; O2SAT 99
[2021-06-21] MEDS: Lactated Ringers 1,000 ML 80 ML IV (11:14)
--- NOTE | 2021-06-21 11:27 | W.ANESPRE ---
General Info Date of Service Date Performed: 06/21/21 Height: 5 ft 8 in Weight: 81.4 kg Body Mass Index (BMI): 27.3 Surgical Procedure: Operation Date: 06/21/21 13:20 Proposed Procedures Side Surgeon p Colonoscopy/Gastroscopy Savanah Sexton, DO Meds Allergies and Home Medications Allergies Allergy/AdvReac Type Severity Reaction Status Date / Time No Known Allergies Allergy Unverified 06/21/21 10:54 Home Medication Medication Instructions Recorded cyclobenzaprine 5 mg tablet 5 mg PO QHS 05/18/21 dexlansoprazole 30 mg 30 mg PO DAILY 05/18/21 capsule,biphase delayed release multivitamin 5 ml PO DAILY 05/30/21 bisacodyl 5 mg tablet,delayed 5 mg PO ONCE #4 tab 06/20/21 release polyethylene glycol 3350 17 238 g PO ONCE #238 g 06/20/21 gram/dose oral powder Current Visit Medications: Current Medications Generic Name Dose Route Start Last Admin Trade Name Freq PRN Reason Stop Dose Admin Hyoscyamine Sulfate 0.125 mg 06/20/21 22:02 Hyoscyamine 0.125 Mg Sl/Oral/Chew SL DIRECTED PRN Ringer's Solution 1,000 mls @ 80 mls/hr 06/21/21 06:00 06/21/21 11:14 IV 07/20/21 23:59 80 mls/hr INFUSION MAURI Administration IV Miscellaneous Supplies 1 each 06/21/21 06:00 Iv Access IV 07/20/21 23:59 DIRECTED MAURI Sodium Chloride 0 ml 06/21/21 06:00 Normal Saline Flush 10 Ml Syr IV 07/20/21 23:59 PRN PRN Sodium Chloride 0 ml 06/21/21 06:00 Normal Saline 10 Ml Vial IJ 07/20/21 23:59 DIRECTED PRN Sterile Water 0 ml 06/21/21 06:00 Water,Injection,Sterile 10 Ml Vial IJ 07/20/21 23:59 DIRECTED PRN PFSH Active Problems Active Problems: Problem Status Onset Code Chronic diarrhea K52.9 LLQ abdominal pain R10.32 Abdominal bloating R14.0 Frequent stools K52.9 Family history of diabetes mellitus (DM) Z83.3 Medical History Active Problem List Chronic diarrhea (Acute) LLQ abdominal pain (Acute) Abdominal bloating (Acute) Frequent stools (Acute) Family history of diabetes mellitus (DM) (Acute) Medical History Abdominal pain Allergic rhinitis Cellulitis of face Depressive disorder GERD (gastroesophageal reflux disease) Hyperplasia of prostate Impotence of organic origin Low back pain Muscle spasm Neck pain Pain in right shoulder Surgical History Surgical History (Updated 06/21/21 @ 10:54 by Desi Maravilla) History of colonoscopy Tobacco Smoking/Tobacco Use Status: Never Alcohol Alcohol Intake: current Alcohol intake frequency: a few times a week Alcohol type: hard liquor Substance Use Substance use: Never Substance use type: does not use Vital Signs and Lab Results Vital Signs Most Recent Vital Signs in EMR: Most Recent Vital Signs Temp Pulse Resp BP Pulse Ox 36.9 C 76 18 135/97 H 99 06/21/21 10:55 06/21/21 10:55 06/21/21 10:55 06/21/21 10:55 06/21/21 10:55 Lab Results Blood Type / Crossmatch: No Data to Display Complete Blood Count: White Blood Count 6.18 10^3/uL (4.4-10.8) 06/20/21 08:25 06/20/21 Red Blood Count 5.58 10^6/uL (4.36-5.78) 06/20/21 08:25 06/20/21 Hemoglobin 17.0 g/dL (13.5-17.5) 06/20/21 08:25 06/20/21 Hematocrit 50.4 % (40.0-50.0) H 06/20/21 08:25 06/20/21 Platelet Count 195 10^3/uL (130-400) 06/20/21 08:25 06/20/21 Complete Metabolic Panel: Sodium Level 141 mmol/L (136-145) 06/20/21 08:25 06/20/21 Potassium Level 4.4 mmol/L (3.5-5.1) 06/20/21 08:25 06/20/21 Chloride Level 104 mmol/L (98-107) 06/20/21 08:25 06/20/21 Carbon Dioxide Level 29.0 mmol/L (21.0-32.0) 06/20/21 08:25 06/20/21 Blood Urea Nitrogen 16 mg/dL (7-18) 06/20/21 08:25 06/20/21 Creatinine 0.8 mg/dL (0.70-1.30) 06/20/21 08:25 06/20/21 Estimated GFR/1.73 m2 >= 60.00 (mL/min/1.73m2) 06/20/21 08:25 06/20/21 Magnesium Level 2.0 mg/dL (1.8-2.4) 06/20/21 08:25 06/20/21 Calcium Level 9.3 mg/dL (8.5-10.1) 06/20/21 08:25 06/20/21 Glucose Level 91 mg/dL (74-106) 06/20/21 08:25 06/20/21 Hemoglobin A1c 5.4 % (<5.7) 06/20/21 08:25 06/20/21 C-Reactive Protein 0.21 mg/dL (0.0-0.3) 06/20/21 08:25 06/20/21 Liver Function Panel: No Data to Display Coagulation Panel: No Data to Display Cardiac Panel: No Data to Display Arterial Blood Gas: No Data to Display Venous Blood Gas: No Data to Display Pancreas Panel: No Data to Display Thyroid Panel: No Data to Display Infectious Disease: Coronavirus (COVID-19)(PCR) Negative (Negative) 06/20/21 08:47 06/20/21 Coronavirus 2019 Source Nasal/Nares 06/20/21 08:47 06/20/21 Blood Cultures: No Data to Display Toxicology Panel: No Data to Display Anesthesia Assessment and Plan Anesthesia History Personal History: No History of Anesthesia Complications Family History: No Family History of Anesthesia Complications Exercise Tolerance Exercise Tolerance: Metabolic Equivalents>4 Pertinent Negatives Pertinent Negatives: No Symptoms of GERD (Well controlled with medication), No Major Cardiovascular Symptoms or Complaints, No Major Pulmonary Symptoms or Complaints and No History of CVA/TIA Cardiac & Pulmonary Exam Cardiac Exam: Normal S1/S2 Heart Sounds Pulmonary Exam: Clear Bilateral Breath Sounds Implantable Cardiac Device Does patient have a Pacemaker or an ICD?: No Airway Exam Known Difficult Airway: No Mallampati Class: 1 Mouth Opening: Normal (> 3cm) Thyromental Distance: Greater than 3 cm Neck Range of Motion: Full ROM Neck Circumference: Normal Teeth Condition: Normal Dentition Airway Comments: #21 chipped ASA Classification ASA Score: ASA 2 Emergency Case?: No NPO Status NPO Status: NPO Clears >2 hours, Solids >8 hours Anesthesia Plan Resuscitation Status: Full Code Anesthesia Technique: General Anesthesia Airway Planned: Natural Airway Monitors Used: Standard Monitors
[2021-06-21 11:30] VITALS: BMI 27.3
--- NOTE | 2021-06-21 14:19 | BOWEL_PTH ---
PATIENT: Missy Booker LOC: [facility] U#:[id number] AGE/SX: 56/M ROOM: RE06/21/[address]: Savanah Sexton : 1965 BED: DIS: 06/21/2021 SPEC #: [id number] RECD: 06/21/21 18:59 STATUS: GANGA TRAYLOR #: [id number] ELLEN: 06/21/21 14:[address]: Savanah Sexton DEPT: Surgical Specimen RECD BY: Justine Sosa ENTERED: 06/21/21 19:01 SP TYPE: Bowel OTHR DR: Fabio Arias Tissues: 1 - BIOPSY BOWEL 2 - BIOPSY BOWEL 3 - STOMACH BIOPSY 4 - STOMACH BIOPSY 5 - ESOPHAGUS BIOPSY 6 - ESOPHAGUS BIOPSY 7 - BIOPSY BOWEL 8 - BIOPSY BOWEL 9 - BIOPSY BOWEL 10 - BIOPSY BOWEL 11 - BIOPSY BOWEL Procedures: GROSS AND MICRO LEVEL 4 Comments: [id number]
[2021-06-21 15:08] VITALS: BP 128/101; PULSE 93; RESP 18; TEMP 36.3; O2SAT 97
--- NOTE | 2021-06-21 15:08 | W.COLOREPORT ---
Colonoscopy Report Date of procedure: 06/21/21 Pre-op diagnosis general: abdominal pain Surgeon: Savanah Sexton Anesthesia Type: General:No Airway Pathology: other Complications: None Disposition: same day Prep: Miralax/Dulcolax Retraction Time: 10 mins Procedure Description: After informed consent was obtained the patient was taken to the procedure room and placed in a left decubitous position. Monitors were applied and a time out was done. The patients name, date of , procedure, allergies to medications and metal in their body was reviewed. The patient was then sedated. Once sedated and comfortable a rectal exam was done. External exam was normal. Internal exam revealed a normal sphincter tone and no palpable masses. The scope was then introduced and retrofelexed. no internal hemorrhoids were identified. The scope was then advanced to the cecum w/out difficulty. The TI and appendiceal orifice were identified. The prep was good. The scope was then slowly retracted over 10 minutes back into the rectum. There are non polyps or AVM/s noted. The mucousa is pink and healthy. BX are taken at: cecum/70cm/50cm/30cm/rectum. He has a few, small scattered diverticula in the sigmoid colon. The scope was removed and the patient was woken up and taken back to Same day surgery in stable condition. The patient tolerated the procedure well and there were no immediate complications. Follow up: The patient should follow up in 10 years unless they develop changes in bowel habits or other new gastrointestinal complaints.
--- NOTE | 2021-06-21 15:11 | ENDO_ITS ---
Date of service: 06/21/21 Time of Service: 15:11 Endoscopy Report DATE OF PROCEDURE: 06/21/21 PRE-OP DIAGNOSIS: med refractory reflux POST-OP DIAGNOSIS: other (moderate esophagitis/poss Dodd's-pd Bx) SURGEON: Savanah Sexton ANESTHESIA TYPE: General:No Airway ESTIMATED BLOOD LOSS: 2 PATHOLOGY: other COMPLICATIONS: None DISPOSITION: same day PROCEDURE DESCRIPTION: After informed consent was obtained the patient was take to the procedure room and placed in a supine position. Monitors were applied and a time out was done. The patients name, date of , procedure type, allergies to medications and metal in their body was reviewed. A bite block was placed and the patient was sedated. Once sedated and comfortable the gastroscope was advanced through the oropharynx which was grossly normal into the esophagus. The proximal and mid-esophagus were nl. In the distal esophagus there was no: varices/diverticula or strictures. There are signs of chronic longstanding reflux at the GE junction and moderate esophagitis. The scope was advanced into the stomach and through the pylorus into the 3rd portion of the duodenum. The duodenum was noted to be nl. Biopsies were done- all specimens are retrieved and no bleeding is noted. The scope was retracted back into the stomach and biopsies were done to rule out H. pylori. There were no ulcers/gasrtitis. The scope was retroflexed. The cardia and fundus were noted to be normal. There no hiatal hernia noted. The scope was retracted back into the esophagus and biopsies were done of the GE junction to rule out Dodd's. The Z line was irregular. There are x2 isolated 1cm islands of normal epitheli um. there are x3 tongues of Barett's- each 1cm in size. no ulcers. This is a roughly 2cm area, in length. The scope was removed and the patient was woken up and taken back to [facility] in stable condition. Follow up: 2 wks time cont dexilant Continue with lifestyle modifications: no alcohol, tobacco products, Aspirin or NSAID's (ibuprofen, Motrin, Naprosyn, aleve, etc), soda pop/any carbonated génesis erages, caffeine (including tea & chocolate), and acidic foods, (tomatoes, citrus, onions, peppermints) spicy or fried/fatty foods. Do not lie down for 30 minutes after eating, and do not eat 2 hours prior to bedtime. Avoid wearing tight fitting clothing/ belts US of GB
--- NOTE | 2021-06-21 15:12 | W.ANESPOSTOP ---
Postoperative Evaluation Date, Time and Location Date Performed: 06/21/21 Time Performed: 15:12 Patient Location: Day Surgery Unit Vital Signs Most Recent Imported Vital Signs: Most Recent Vital Signs Temp Pulse Resp BP Pulse Ox 36.9 C 76 18 135/97 H 99 06/21/21 10:55 06/21/21 10:55 06/21/21 10:55 06/21/21 10:55 06/21/21 10:55 Most Recent Manually Entered Vital Signs: Adult Blood Pressure: 118/101 Heart Rate: 78 Respirations: 10 Oxygen Saturation (%): 99 Temperature (C): 36.4 C Pain Score (0-10 Scale): 0 Assessment Mental Status: Awake (Alert & Oriented to Patient Baseline) Airway and Respiratory Function: Patent airway with normal (patient baseline) respiratory exam Cardiovascular Function: Hemodynamically Stable Hydration Status: Adequately Hydrated Nausea & Vomiting: No Nausea or Vomiting Pain: Pain is tolerable per patient Peripheral Nerve Block: Patient did not receive a nerve block
[2021-06-21 15:13] VITALS: BP 118/101; PULSE 78; RESP 10; TEMPC 36.4; O2SAT 99
--- NOTE | 2021-06-21 15:19 | PDOC.DSDIS_ITS ---
Discharge Plan Disposition Patient Disposition: HOME Condition: Good Discharge Details Reason For Visit: egd and colon scope Attending Provider: Savanah Sexton Primary Care Provider: Fabio Arias Home Meds and New Rx's Prescriptions: Continued multivitamin Liquid 5 ml PO DAILY RF: 0 cyclobenzaprine 5 mg tablet 5 mg PO QHS RF: 0 Dexilant 30 mg capsule,biphase delayed releas 30 mg PO DAILY RF: 0 Discontinued polyethylene glycol 3350 17 gram/dose powder 238 g PO ONCE Qty: 238 RF: 0 bisacodyl [Dulcolax (bisacodyl)] 5 mg tablet,delayed release (DR/EC) 5 mg PO ONCE Qty: 4 RF: 0 Discharge Instructions Additional Instructions: DSU Colonoscopy Post- Op Instructions Instructions for Everyone who is given Anesthesia: For your safety, please do the following for the next twenty-four (24) hours: *Do Not operate a motor vehicle (car, truck, motorcycle, etc.) *Do Not drink alcoholic beverages or use any recreational drugs for the first 24 hours or while taking pain medications. The medications in your body may have a reaction that can be dangerous. *Do Not make any important decisions or sign any important papers. Findings: few small diverticula in colon, other normal. Biopsy's were taken. egd: severe esophagitis. Bopsy's were taken. -gargle w/ salt water for sore throat. Follow up: 2 wks 07/04 2:30pm Radiology will call to schedule US, to view gallbladder. Food allergy testing blood work done 06/21 1. No lifting over 20 pounds or strenuous activity for the first 24 hours after your procedure. After 24 hours there are no restrictions on your activity but you may feel fatigued for a few days. 2. After you arrive home you may have a light meal and return to your normal diet as you can tolerate it without feeling sick to your stomach. 3. You may have a bloated, gaseous feeling in your belly (abdomen) after a colonoscopy. Passing gas and belching will help. Walking or lying down on your left side with your knees flexed may relieve the discomfort. Call the office at [phone] (Office) or [phone] (Hospital) right away if you notice any of the following: a.Vomiting of blood or ?coffee ground stools?. b.Rectal bleeding 1Tbsp, blood clots or continuous bleeding. c.Severe belly (abdominal) pain. d.A hard distended belly (abdomen) and an inability to pass gas. 4. Please don?t expect to have a normal BM (bowel movement) for 2-3 days after your procedure. 5. If there are questions regarding the findings of your procedure, please contact your doctor 6. If you are unable to contact your doctor with a problem, contact the hospital at [phone]. 7. Continue all your regular medications unless directed otherwise. I understand the above instructions and have no questions. Signature of Patient or Adult Escort Name of Responsible Adult Escort Signature of Nurse Date/Time Activity:: see above Diet:: see above Discharge Orders Discharge Orders: Discharge Order (Routine); Ordered 06/20/21 Ordered By: Savanah Sexton DS: Diagnosis Discharge Diagnosis (1) Frequent stools: Status: Acute (2) Abdominal bloating: Status: Acute (3) LLQ abdominal pain: Status: Acute (4) Chronic diarrhea: Status: Acute (5) Allergic rhinitis: Status: Acute (6) GERD (gastroesophageal reflux disease): Status: Acute
[2021-06-21 15:55] VITALS: BP 116/98; PULSE 81; RESP 18; TEMP 36.5; O2SAT 97
== END 2021-06-21 16:28 | disposition home or self-care (01) ==
PROVIDERS: PCP Neuromusculoskeletal Medicine & OMM; Visit Provider Surgery
PROC: (CPT 45380; principal; 2021-06-21 13:15)
DX: K21.00 Gastro-esophageal reflux disease with esophagitis, without bleeding (principal); K52.9 Noninfective gastroenteritis and colitis, unspecified; R14.0 Abdominal distension (gaseous); R10.84 Generalized abdominal pain
CPT/HCPCS: 45380; 43239; 88305; J2001

== ENCOUNTER 2021-07-05 01:44 | Outpatient (CLI) | payer MEDICAID, SELFPAY ==
--- NOTE | 2021-07-05 06:15 | DI.US_ITS ---
Exam(s) US ABDOMEN EXAM: US ABDOMEN CLINICAL HISTORY: abdom pain/diarrhea/bloating,distension,r14.0,k52.9,r10.9 TECHNIQUE: Ultrasound abdomen performed using standard protocol. FINDINGS: ABDOMINAL AORTA AND IVC: Visualized portions normal caliber. PANCREAS: Normal where visualized. LIVER: Diffuse increased echogenicity of the liver consistent with fatty infiltration. The liver anup sures 15.3 cm long. Hepatopedal flow in the Portal Vein. GALLBLADDER: No evidence of cholelithiasis. No evidence of wall thickening. No pericholecystic fluid identified. There is a 2 mm nonshadowing echogenic focus along the wall of the gallbladder likely ref lecting a polyp. BILIARY SYSTEM: Common bile duct measures < 7 mm. No intrahepatic biliary ductal dilation. RAMIREZ'S SIGN: Negative. KIDNEYS: Kidneys are symmetric in size. Nonobstructing left renal calculi are identified. These were present on the CT scan from 2018. no evidence of hydronephrosis. There are stable right renal cysts. No follow-up is recommended. SPLEEN: Not enlarged. ASCITES: None seen. IMPRESSION: 1. Hepatic steatosis. 2. 2 mm echogenic nonshadowing immobile focus along the wall of the gallbladder likely reflecting a p olyp. 3. Stable left nephrolithiasis and stable right renal cysts. DATA REPOSITORY:
== END 2021-07-05 02:04 ==
PROVIDERS: PCP Neuromusculoskeletal Medicine & OMM; Visit Provider Surgery
DX: R10.9 Unspecified abdominal pain (principal); R14.0 Abdominal distension (gaseous); K52.9 Noninfective gastroenteritis and colitis, unspecified; K76.0 Fatty (change of) liver, not elsewhere classified; K82.8 Other specified diseases of gallbladder; N20.0 Calculus of kidney; N28.1 Cyst of kidney, acquired
CPT/HCPCS: 76700

== ENCOUNTER 2021-08-12 01:09 | Outpatient (CLI) | payer MEDICAID, SELFPAY ==
--- NOTE | 2021-08-12 06:45 | DI.NM_ITS ---
Exam(s) NM HEPATOBILIARY CCK GRP EXAM: NM HEPATOBILIARY CCK GRP CLINICAL HISTORY: ABD PAIN,BLOATING,DIARRHEA,NEG US AND CE,R10.9,R14.0. TECHNIQUE: Injected dose: 5.1 mCi Tc-99 mebrofenin Initial dynamic images: 60 minutes additional 70 minutes images Post-Gallbladder fillin.4 mcgCCK intravenously over a 20 minutes infusion. Imaging carried out 44 minutes. COMPARISON: US US ABDOMEN from 07/05/2021 FINDINGS: Normal hepatic transit time. Prompt excretion into the small bowel. Prompt excretion into the gallbladder. Gallbladder ejection fraction is within normal limits at 53 p ercent. Lower limit of normal is 40 percent. IMPRESSION: 1. Gallbladder ejection fraction 53 percent.. SN guidelines: Gallbladder visualization should be present by 3 hours. Delayed qqtsrdg-yo-caknn brown sit beyond 60 min raises the suspicion for partial common bile duct (CBD) obstruction. Gallbladder ejection fraction <35% has a good correlation with acalculous disease (i.e., chronic acal culous cholecystitis, cystic duct syndrome, sphincter of Oddi disease).
== END 2021-08-12 01:29 ==
PROVIDERS: PCP Neuromusculoskeletal Medicine & OMM; Visit Provider Surgery
DX: R14.0 Abdominal distension (gaseous) (principal); K52.9 Noninfective gastroenteritis and colitis, unspecified; R10.84 Generalized abdominal pain
CPT/HCPCS: 78227

== ENCOUNTER 2024-04-08 18:16 | Emergency (ER) | payer MEDICAID, SELFPAY ==
[2024-04-08 18:28] VITALS: BP 131/89; PULSE 87; RESP 16; TEMP 36.8; O2SAT 95
--- NOTE | 2024-04-08 18:45 | DI.CT_ITS ---
Exam(s) CT RENAL COLIC WO EXAM: CT RENAL COLIC WO CLINICAL HISTORY: Bilateral flank pain, hematuria. TECHNIQUE: Imaging Protocol: Axial computed tomography images with coronal and sagittal reformatted images were created and reviewed CONTRAST MATERIAL: Intravenous: none Oral: None FINDINGS: VISUALIZED LUNG BASES: No nodules nor pleural effusions evident. ABDOMEN: There is no ascites. LIVER: Hypodense liver implying steatosis. No discrete focal hepatic lesions identified and this non few study. GALLBLADDER/BILIARY: No obvious gallbladder pathology. CBD is not dilated. PANCREAS: No evidence of pancreatic mass nor dilatation of the pancreatic duct. SPLEEN: Spleen is not enlarged. No obvious intrasplenic lesions. ADRENALS: There are no significant adrenal masses. KIDNEYS:There are 2 cysts in the right kidney which have slightly increased in size from previous. T he larger measures 2 x 1.8 cm. Located in the lower pole. There are no calculi in the right kidney. No hydronephrosis of the right kidney. There is unilateral left-sided nephrolithiasis and also lef t-sided hydronephrosis and hydroureter with the left ureter being dilated to 1.2 cm. This is due to a large irregular shaped calculus in the distal left ureter which measures approximately 14 x 10 x 9 mm.. There are no other calculi above this level in the ureter but there are 3 remaining calculi in the left kidney which are of smaller size. There are no calculi within the lumen of the nondistende d urinary bladder. No bladder mass. ABDOMINAL AORTA: Abdominal aorta is not enlarged. LYMPH NODES: There is no retroperitoneal nor paraaortic adenopathy. ABDOMINAL WALL: No evidence of significant anterior abdominal wall nor inguinal hernia. GI: There is no evidence of bowel obstruction, free air, nor abscess. PELVIS: LYMPH NODES: There is no intrapelvic nor inguinal adenopathy. GI: No evidence of appendicitis.There few sigmoid diverticuli but no evidence of diverticulitis. URINARY BLADDER: No calculi nor obvious masses evident REPRODUCTIVE: Slightly prominent prostate and seminal vesicles OSSEOUS: No significant osseous lesions. No osseous lesions. Degenerative disc disease chronic lower lumbar spine noted. IMPRESSION: 1. There is a large obstructing 14 mm calculus in the lower left ureter with significant unilateral l eft hydronephrosis and hydroureter above this level. 2. Three additional smaller calculi noted in the left kidney. No obvious calculi in the right kidney . No calculi in the urinary bladder RADIATION DOSE DELIVERED: 522.44mGy.cm Total DLP DATA REPOSITORY: All CT scans at this facility are submitted to the National Radiology Data Registry (NRDR) Dose Index Registry (DIR) with the [employer] (A[employer]). RADIATION OPTIMIZATION: All CT scans at this facility use at least one of these dose optimization te chniques: automated exposure control; mA and/or kV adjustment per patient size (includes targeted exa ms where dose is matched to clinical indication); or iterative reconstruction.
[2024-04-08 18:46] LABS: Bilirubin Negative (Negative); Blood Small (Negative); Clarity Clear (Clear); Glucose Negative (Negative); Ketones Negative (Negative); Leukocyte Esterase Negative (Negative); Nitrite Negative (Negative); Specific Gravity 1.025 (1.005-1.025); Urobilinogen 0.2 mg/dL (Up to 0.2); pH 6.5 (5-8)
[2024-04-08 18:55] LABS: Bacteria Negative HPF (Negative); C & S Indicated? No; Crystals Negative HPF (Negative); Epithelial Cells Negative HPF (Negative); Mucus Trace (Negative); WBC 0-2 HPF (0-5)
[2024-04-08 19:36] VITALS: BP 131/89; RESP 16; TEMP 36.8; O2SAT 95
--- NOTE | 2024-04-08 19:40 | ED.GENADUL_ITS ---
Discharge Plan Disposition Patient Disposition: Home Condition: Stable Discharge Details Clinical Impression: Hydronephrosis with renal and ureteral calculous obstruction Primary Care Provider: Fabio Arias ED Provider: Mary Silva Home Meds and New Rx's Prescriptions: New tamsulosin 0.4 mg capsule 0.4 mg PO QHS 7 Days Qty: 10 0RF Rx Instructions: Take one tablet by mouth daily at bedtime No Action dexlansoprazole [Dexilant] 30 mg capsule,biphase delayed releas 30 mg PO DAILY Discharge Instructions Instructions: Kidney stones in adults, Urinary Obstruction (DC) Additional Instructions: Please strain all your urine. Please closely follow-up with urology in the next 1 to 2 days. I did speak with urology at [facility]. They. It is okay for outpatient follow-up. Please take the medications prescribed as directed. Follow up with urology/ primary care provider in 3-5 days. Return to ED sooner if any worsening pain, fever, vomiting or concerns. Referrals: Tru Liu MD [ [facility] STAFF PHYSICIAN] - 2 days (Obstructing left kidney stone with severe hydronephrosis) HPI General Mode of arrival: ambulatory . Date/Time Provider Initiated Documentation: 04/08/24 18:39 . Limitations to Documentation: no limitations . Information obtained by: patient, RN notes reviewed and old records reviewed . HPI Narrative: 59-year-old male presents to the ER with a chief complaint of urinary hesitancy which has been ongoing for approximately 1 month and worsening left flank pain today. Also noted myalgias and vomiting prior to arrival. He is having a history of kidney stones, hyperplasia of prostate, depression and muscle spasm. He also reports that today he has had dysuria. Related Data Home Medications ?Medication ?Instructions ?Recorded ?Confirmed dexlansoprazole 30 mg 30 mg PO DAILY 05/18/21 04/08/24 capsule,biphase delayed release (Dexilant) tamsulosin 0.4 mg capsule 0.4 mg PO QHS 7 days #10 caps 04/08/24 Previous Rx's ?Medication ?Instructions ?Recorded tamsulosin 0.4 mg capsule 0.4 mg PO QHS 7 days #10 caps 04/08/24 Allergies Allergy/AdvReac Type Severity Reaction Status Date / Time No Known Allergies Allergy Unverified 04/08/24 18:33 General Stated Complaint: Urinary ELLE: 3 Review of Systems All systems reviewed & are unremarkable except as noted in HPI and below Gastrointestinal Gastrointestinal: Reports nausea and Reports vomiting Genitourinary Genitourinary: Reports dysuria, Reports flank pain and Reports urinary hesitancy Exam Narrative Exam Narrative: Constitutional: Alert and oriented x3. Appears stated age. Normal body habitus. Head: Normocephalic, no trauma. Eyes: Pupils PERRL, Red reflex noted, EOM's intact. Eyelids symmetrical without lesions, discharge, or swelling. ENT: Bilateral TM's WNL, External ear normal to inspection, no mastoid TTP, swe lling, or erythema, Nasal turbinates WNL, no nasal discharge. Normal dentition, Posterior pharynx WNL, no exudate. Chest: RRR, Normal S1, S2, distal pulses intact. Resp: Lungs clear to auscultation bilaterally, no wheezes, rales, or rhonchi. Abdomen: Soft, non-distended, Normoactive bowel sounds all 4 quads. Musculoskeletal: Normal gait, Moves all 4 extremities without difficulty. Skin: No suspicious rashes or lesions. Capillary refill less than 2 sec. Neurologic: Cranial nerves II-XII intact. Alert and oriented x 3. Motor: No deficits noted. Sensory: Intact bilaterally all 4 extremities. Hematologic/Lymphatic: No ecchymosis, no lymphadenopathy. Course Vital Signs Vital signs: Vital Signs Temperature 36.8 C 04/08/24 18:28 Pulse 87 04/08/24 18:28 Respiratory Rate 16 04/08/24 18:28 Blood Pressure 131/89 04/08/24 18:28 Pulse Oximetry 95 04/08/24 18:28 Temperature 36.8 C 04/08/24 18:28 Pulse 87 04/08/24 18:28 Respiratory Rate 16 04/08/24 18:28 Blood Pressure 131/89 04/08/24 18:28 Pulse Oximetry 95 04/08/24 18:28 Oxygen Delivery Method Room Air 04/08/24 18:28 Oxygen Flow Rate 0 04/08/24 18:28 Pain Level 8 04/08/24 18:28 Lab/Test Results Lab/Test Results: Laboratory Tests Range/Units 04/08/24 18:36 Urine Color (Yellow) Yellow Urine Clarity (Clear) Clear Urine pH (5-8) 6.5 Ur Specific [place] (1.005-1.025) 1.025 Urine Protein (Neg-Trace) mg/dL Negative Urine Ketones (Negative) mg/dL Negative Urine Blood (Negative) Small H Urine Nitrite (Negative) Negative Urine Bilirubin (Negative) Negative Urine Urobilinogen (Up to 0.2) mg/dL 0.2 Ur Leukocyte Esterase (Negative) Negative Urine RBC (0-2) HPF 10-20 H Urine WBC (0-5) HPF 0-2 Ur Epithelial Cells (Negative) HPF Negative Urine Crystals (Negative) HPF Negative Urine Bacteria (Negative) HPF Negative Urine Mucus (Negative) Trace Ur Culture Indicated? No Urine Glucose (Negative) mg/dL Negative Medical Decision Making 59-year-old male presents to the ER with a chief complaint of urinary hesitancy which has been ongoing for approximately 1 month and worsening left flank pain today. Also noted myalgias and vomiting prior to arrival. He is having a history of kidney stones, hyperplasia of prostate, depression and muscle spasm. He also reports that today he has had dysuria. CBC, CMP IV CT renal colic without ordered. Urinalysis showed no Small blood, 10-20 RBCs, no leukocytes no nitrites. Differential diagnosis includes not limited to UTI, monitor. Cyst is not indicate this, pyelonephritis, kidney stone. Less likely diverticulitis. 2100: [facility] transfer center paged to speak with Urology, Toradol 15 mg IV ordered, tamsulosin 0.4 mg p.o. and Zofran 4 mg IV. 2204: Dr. Goncalves with Urology reports that patient can be treated as an outpatient with tamsulosin amd pain medications with close follow up with local Urology. Will send home with Tamsulosin and Oxycodone 4 tablets. Will give a strainer and urge close follow up with urology. This text was generated using [email or web address] system, please disregard any oddities of phrase or misspellings. Imaging Data Radiologic Study: Imaging: CT Scan Radiologist's impression: FINDINGS: Lungs: Mild atelectasis at the lung bases. Diaphragm: Small hiatal hernia. Liver: Diffuse fatty infiltration of the liver. Gallbladder and biliary ducts: Normal appearing gallbladder. No calcified gallstones. No biliary dilatation. Pancreas: Grossly unremarkable unenhanced pancreas. Spleen: Grossly unremarkable unenhanced spleen. Adrenal glands: Normal appearing adrenal glands. Kidneys and ureters: 10 mm x 9 mm x 13 mm irregularly shaped distal left ureteral calculus with upstream ureterectasis, periureteral edema, and severe hydronephrosis. Nonobstructing left renal calculi with the largest measuring 6 mm x 6 mm x 8 mm, also irregularly shaped. 1.5 cm right renal cyst. Additional smaller hypoattenuating renal lesions, not well characterized but statistically most likely additional small cysts. No right-sided urinary tract stones or hydronephrosis. Stomach and bowel: No oral contrast. Stomach partially decompressed. No small bowel dilatation to suggest obstruction. Normal-appearing colon. No evidence of diverticulitis or colitis. Appendix: Normal appendix. Intraperitoneal space: No gross ascites or free air. Vasculature: No abdominal aortic aneurysm. Lymph nodes: No pathologically enlarged mesenteric, retroperitoneal, or pelvic sidewall lymph nodes. Urinary bladder: Normal appearing urinary bladder. Reproductive: Normal-sized prostate gland with coarse calcifications. Unusually prominent seminal vesicles, nonspecific but also seen on the comparison exam from 2018. Bones/joints: No acute fracture seen among the bones of the abdomen or pelvis. Spinal degenerative change with small Schmorl's nodes and anterior osteophytes at multiple levels. Prominent discogenic degeneration at L4-L5. Transitional L5 vertebral body, hemisacralized on the right. Soft tissues: Small fat containing ventral hernia at the umbilicus. Small fat containing left inguinal region hernia. IMPRESSION: 10 mm x 9 mm x 13 mm irregularly shaped, obstructing distal left ureteral calculus. Lab Data Lab results reviewed: Yes I reviewed the patient's lab results. Labs: Laboratory Tests Range/Units 04/08/24 04/08/24 18:36 19:47 WBC (4.4-10.8) 10^3/uL 9.61 RBC (4.36-5.78) 10^6/uL 5.03 Hgb (13.5-17.5) g/dL 15.8 Hct (40.0-50.0) % 45.5 MCV (80-95) fL 91 MCH (27.0-33.0) pg 31.4 MCHC (32.0-36.0) % 34.7 RDW (11.8-14.1) % 12.4 Plt Count (130-400) 10^3/uL 212 MPV (8.0-11.0) fL 10.4 Immature Gran % % 0.4 Neutrophils % % 78.4 Lymphocytes % % 13.8 Monocytes % % 6.2 Eosinophils % % 0.7 Basophils % % 0.5 Nucleated RBC % (0.0-0.3) % 0.0 Absolute Neutrophils (1.2-6.7) 10^3/uL 7.52 H Absolute Lymphocytes (1.2-3.4) 10^3/uL 1.33 Absolute Monocytes (0.1-0.8) 10^3/uL 0.60 Absolute Eosinophils (0.0-0.7) 10^3/uL 0.07 Absolute Basophils (0.0-0.2) 10^3/uL 0.05 Sodium (136-145) mmol/L 143 Potassium (3.5-5.1) mmol/L 4.2 Chloride (98-107) mmol/L 107 Carbon Dioxide (21.0-32.0) mmol/L 26.5 Anion Gap (3-11) mmol/L 9.5 BUN (7-18) mg/dL 21 H Creatinine (0.70-1.30) mg/dL 1.3 Est GFR (CKD-EPI 2020) (mL/min/1.73m2) 63.68 Glucose (74-106) mg/dL 155 H Calcium (8.5-10.1) mg/dL 9.7 Total Bilirubin (0.2-1.0) mg/dL 0.48 AST (15-37) U/L 34 ALT (16-63) U/L 66 H Alkaline Phosphatase (46-116) U/L 93 Total Protein (6.4-8.2) g/dL 7.6 Albumin (3.4-5.0) g/dL 4.2 Urine Color (Yellow) Yellow Urine Clarity (Clear) Clear Urine pH (5-8) 6.5 Ur Specific [place] (1.005-1.025) 1.025 Urine Protein (Neg-Trace) mg/dL Negative Urine Ketones (Negative) mg/dL Negative Urine Blood (Negative) Small H Urine Nitrite (Negative) Negative Urine Bilirubin (Negative) Negative Urine Urobilinogen (Up to 0.2) mg/dL 0.2 Ur Leukocyte Esterase (Negative) Negative Urine RBC (0-2) HPF 10-20 H Urine WBC (0-5) HPF 0-2 Ur Epithelial Cells (Negative) HPF Negative Urine Crystals (Negative) HPF Negative Urine Bacteria (Negative) HPF Negative Urine Mucus (Negative) Trace Ur Culture Indicated? No Urine Glucose (Negative) mg/dL Negative Quality:SDOH Health Related Social Needs: No Data to Display PFSH All Active Problems (Updated 04/08/24 @ 22:08 by Mary Silva NP) Hydronephrosis with renal and ureteral calculous obstruction (Acute) Normal colonoscopy (Acute ~06/21/21) Abdominal pain (Acute) Allergic rhinitis (Acute) GERD (gastroesophageal reflux disease) (Acute) Chronic diarrhea (Acute) LLQ abdominal pain (Acute) Abdominal bloating (Acute) Frequent stools (Acute) Family history of diabetes mellitus (DM) (Acute) Medical History Impotence of organic origin Pain in right shoulder Abdominal pain Low back pain Neck pain Cellulitis of face Hyperplasia of prostate Depressive disorder Muscle spasm Surgical History History of esophagogastroduodenoscopy (EGD) (~06/21/21) History of colonoscopy (~06/21/21) Social History Smoking/Tobacco Use Status: Never Smoking risk assessment performed?: Yes Alcohol Intake: current Alcohol Intake frequency: a few times a week Alcohol type: hard liquor Drug use: Never Substance use type: does not use Do you feel safe at home: Yes Do you feel safe in your relationship?: Yes
[2024-04-08 19:59] LABS: Abs Immature Grans 0.04 10^3/uL (0.0-0.06); Absolute Basophil Count 0.05 10^3/uL (0.0-0.2); Absolute Eosinophil Count 0.07 10^3/uL (0.0-0.7); Absolute Lymphocyte Count 1.33 10^3/uL (1.2-3.4); Absolute Neutrophil Count 7.52 10^3/uL (1.2-6.7); Basophils % 0.5 %; Eosinophils % 0.7 %; HCT 45.5 % (40.0-50.0); HGB 15.8 g/dL (13.5-17.5); Immature Grans % 0.4 %; Lymphocytes % 13.8 %; MCH 31.4 pg (27.0-33.0); MCHC 34.7 % (32.0-36.0); MCV 91 fL (80-95); MPV 10.4 fL (8.0-11.0); Monocytes % 6.2 %; Neutrophils % 78.4 %; Platelet Count 212 10^3/uL (130-400); RBC 5.03 10^6/uL (4.36-5.78); RDW 12.4 % (11.8-14.1); RDW-SD 41.1 fL; WBC 9.61 10^3/uL (4.4-10.8)
[2024-04-08 20:21] LABS: ALT 66 U/L (16-63); AST 34 U/L (15-37); Albumin 4.2 g/dL (3.4-5.0); Alkaline Phosphatase 93 U/L (46-116); Anion Gap 9.5 mmol/L (3-11); BUN 21 mg/dL (7-18); Bilirubin, Total 0.48 mg/dL (0.2-1.0); CO2 26.5 mmol/L (21.0-32.0); CREATININE 1.3 mg/dL (0.70-1.30); Calcium 9.7 mg/dL (8.5-10.1); Chloride 107 mmol/L (98-107); Estimated GFR 63.68 (mL/min/1.73m2); Glucose 155 mg/dL (74-106); Potassium 4.2 mmol/L (3.5-5.1); Sodium 143 mmol/L (136-145); Total Protein 7.6 g/dL (6.4-8.2)
--- NOTE | 2024-04-08 20:45 | DI.VRAD_ITS ---
PROCEDURE INFORMATION: Exam: CT Abdomen And Pelvis Without Contrast Exam date and time: 04/08/2024 7:56 PM Age: 59 years old Clinical indication: Abdominal pain; Left; Patient HX: Bilateral flank pain, hematuria TECHNIQUE: Imaging protocol: Computed tomography of the abdomen and pelvis without contrast. Radiation optimization: All CT scans at this facility use at least one of these dose optimization techniques: automated exposure control; mA and/or kV adjustment per patient size (includes targeted exams where dose is matched to clinical indication); or iterative reconstruction. COMPARISON: CT Abdomen^ROUTINE ABDOMEN PELVIS WITHOUT WITH (Adult) 03/12/2018 9:17 AM FINDINGS: Lungs: Mild atelectasis at the lung bases. Diaphragm: Small hiatal hernia. Liver: Diffuse fatty infiltration of the liver. Gallbladder and biliary ducts: Normal appearing gallbladder. No calcified gallstones. No biliary dilatation. Pancreas: Grossly unremarkable unenhanced pancreas. Spleen: Grossly unremarkable unenhanced spleen. Adrenal glands: Normal appearing adrenal glands. Kidneys and ureters: 10 mm x 9 mm x 13 mm irregularly shaped distal left ureteral calculus with upstream ureterectasis, periureteral edema, and severe hydronephrosis. Nonobstructing left renal calculi with the largest measuring 6 mm x 6 mm x 8 mm, also irregularly shaped. 1.5 cm right renal cyst. Additional smaller hypoattenuating renal lesions, not well characterized but statistically most likely additional small cysts. No right-sided urinary tract stones or hydronephrosis. Stomach and bowel: No oral contrast. Stomach partially decompressed. No small bowel dilatation to suggest obstruction. Normal-appearing colon. No evidence of diverticulitis or colitis. Appendix: Normal appendix. Intraperitoneal space: No gross ascites or free air. Vasculature: No abdominal aortic aneurysm. Lymph nodes: No pathologically enlarged mesenteric, retroperitoneal, or pelvic sidewall lymph nodes. Urinary bladder: Normal appearing urinary bladder. Reproductive: Normal-sized prostate gland with coarse calcifications. Unusually prominent seminal vesicles, nonspecific but also seen on the comparison exam from 2018. Bones/joints: No acute fracture seen among the bones of the abdomen or pelvis. Spinal degenerative change with small Schmorl's nodes and anterior osteophytes at multiple levels. Prominent discogenic degeneration at L4-L5. Transitional L5 vertebral body, hemisacralized on the right. Soft tissues: Small fat containing ventral hernia at the umbilicus. Small fat containing left inguinal region hernia. IMPRESSION: 10 mm x 9 mm x 13 mm irregularly shaped, obstructing distal left ureteral calculus. Dictated and Authenticated by: Wayne Hoffmann MD. Ordering:SUJATHA Hernandez MD
[2024-04-08] MEDS: Ketorolac 15 MG/ML VIAL IVP (21:10)
[2024-04-08] MEDS: Normal Saline Flush 10 ML SYR IVP (21:10)
[2024-04-08] MEDS: Tamsulosin 0.4 MG CAPCR PO (21:11)
[2024-04-08] MEDS: Ondansetron 4 MG/2 ML VIAL IVP (21:11)
[2024-04-08 22:26] VITALS: BP 156/96; PULSE 80; RESP 16; O2SAT 97
[2024-04-08] MEDS: Ondansetron O.D.T. 4 MG TABEF, 3 TABS/BTL PO (22:26)
== END 2024-04-08 22:28 | disposition home or self-care (01) ==
PROVIDERS: Emergency Provider Registered Nurse Emergency; PCP Neuromusculoskeletal Medicine & OMM
DX: N13.2 Hydronephrosis with renal and ureteral calculous obstruction (principal)
CPT/HCPCS: 36415; 80053; 96374; 96375; 99284; 74176; 81003; 81015; 85025; J1885; J2405

== ENCOUNTER 2024-04-17 09:45 | PSDC | payer MEDICAID, SELFPAY ==
[2024-04-17] VITALS (31 sets, daily range): BP systolic 97–134; BP diastolic 70–99; PULSE 57–75; RESP 10–20; TEMP 36.2–36.5; O2SAT 87–99; BMI 27.3
--- NOTE | 2024-04-17 09:00 | DI.RAD_ITS ---
Exam(s) XR RETROGRADE IN OR EXAM: XR RETROGRADE IN OR CLINICAL HISTORY: HYDRONEPHROSIS WITH RENAL AND UTERAL CALCULOUS TECHNIQUE: 2D and realtime digital imaging was performed. CONTRAST MATERIAL: Refer to procedure report. COMPARISON: CT CT RENAL COLIC WO from 04/08/2024 FINDINGS: Fluoroscopy was provided for Dr. Liu during the performance of a retrograde evaluation of the jennifer l collecting system. Please refer to the procedure report for complete details. Ka,r=12.3 mGy IMPRESSION: RADIATION DOSE DELIVERED: 0.0 5398.9 0
[2024-04-17] MEDS: Lactated Ringers 1,000 ML 80 ML IV ×2 (10:33→13:46)
--- NOTE | 2024-04-17 10:45 | ANES.PREOP_ITS ---
General Info Date of Service Date Performed: 04/17/24 Height: 5 ft 9 in Weight: 83.8 kg Body Mass Index (BMI): 27.3 Surgical Procedure: Operation Date: 04/17/24 11:10 Proposed Procedure Side Surgeon p Cystoscopy/Laser/Retrograde/Ureteroscopy/Stone Manipulation/Stent Placement Left Tru Liu MD Actual Procedure Side Surgeon p Cystoscopy/Laser/Retrograde/Ureteroscopy/Stone Manipulation/Stent Placement Left Tru Liu MD Meds Allergies and Home Medications Allergies Allergy/AdvReac Type Severity Reaction Status Date / Time No Known Allergies Allergy Verified 04/17/24 10:10 Home Medication ?Medication ?Instructions ?Recorded dexlansoprazole 30 mg 30 mg PO DAILY 05/18/21 capsule,biphase delayed release (Dexilant) tamsulosin 0.4 mg capsule (Flomax) 0.4 mg PO DAILY 04/15/24 Current Visit Medications: Current Medications Generic Name Dose Route Start Last Admin Trade Name Freq PRN Reason Stop Dose Admin Ringer's Solution 1,000 mls @ 80 mls/hr 04/17/24 06:00 04/17/24 10:33 IV 04/17/24 23:59 80 mls/hr INFUSION MAURI Administration Cefazolin Sodium/Dextrose 2 gm in 50 mls @ 100 mls/hr 04/17/24 06:00 Ancef Duplex IVPB 04/17/24 23:59 PREOP MAURI IV Miscellaneous Supplies 1 each 04/17/24 06:00 Iv Access IV 04/17/24 23:59 DIRECTED MAURI Sodium Chloride 0 ml 04/17/24 06:00 Normal Saline Flush 10 Ml Syr IV 04/17/24 23:59 PRN PRN Sodium Chloride 0 ml 04/17/24 06:00 Normal Saline 10 Ml Vial IJ 04/17/24 23:59 DIRECTED PRN Sterile Water 0 ml 04/17/24 06:00 Water,Injection,Sterile 10 Ml Vial IJ 04/17/24 23:59 DIRECTED PRN PFSH Active Problems Active Problems: Problem Status Onset Code Hydronephrosis with renal and ureteral calculous obstruction Acute N13.2 Normal colonoscopy Acute ~06/21/21 Abdominal pain Acute R10.9 Allergic rhinitis Acute J30.9 GERD (gastroesophageal reflux disease) Acute K21.9 Chronic diarrhea Acute K52.9 LLQ abdominal pain Acute R10.32 Abdominal bloating Acute R14.0 Frequent stools Acute K52.9 Family history of diabetes mellitus (DM) Acute Z83.3 Medical History Medical History Impotence of organic origin Pain in right shoulder Abdominal pain Low back pain Neck pain Cellulitis of face Hyperplasia of prostate Depressive disorder Muscle spasm Surgical History Surgical History History of esophagogastroduodenoscopy (EGD) (~06/21/21) History of colonoscopy (~06/21/21) Tobacco Smoking/Tobacco Use Status: Never Alcohol Alcohol Intake: current Alcohol intake frequency: a few times a week Alcohol type: hard liquor Substance Use Substance use: Never Substance use type: does not use Vital Signs and Lab Results Vital Signs Most Recent Vital Signs in EMR: Most Recent Vital Signs Temp Pulse Resp BP Pulse Ox 36.5 C 75 16 134/99 H 99 04/17/24 10:13 04/17/24 10:13 04/17/24 10:13 04/17/24 10:13 04/17/24 10:13 Lab Results Blood Type / Crossmatch: No Data to Display Complete Blood Count: White Blood Count 9.61 10^3/uL (4.4-10.8) 04/08/24 19:47 Red Blood Count 5.03 10^6/uL (4.36-5.78) 04/08/24 19:47 Hemoglobin 15.8 g/dL (13.5-17.5) 04/08/24 19:47 Hematocrit 45.5 % (40.0-50.0) 04/08/24 19:47 Platelet Count 212 10^3/uL (130-400) 04/08/24 19:47 Complete Metabolic Panel: Sodium 143 mmol/L (136-145) 04/08/24 19:47 Potassium 4.2 mmol/L (3.5-5.1) 04/08/24 19:47 Chloride 107 mmol/L (98-107) 04/08/24 19:47 Carbon Dioxide 26.5 mmol/L (21.0-32.0) 04/08/24 19:47 BUN 21 mg/dL (7-18) H 04/08/24 19:47 Creatinine 1.3 mg/dL (0.70-1.30) 04/08/24 19:47 Est GFR (CKD-EPI 2020) 63.68 (mL/min/1.73m2) 04/08/24 19:47 Calcium 9.7 mg/dL (8.5-10.1) 04/08/24 19:47 Albumin 4.2 g/dL (3.4-5.0) 04/08/24 19:47 Glucose 155 mg/dL (74-106) H 04/08/24 19:47 Liver Function Panel: Alanine Aminotransferase (ALT/SGPT) 66 U/L (16-63) H 04/08/24 1 9:47 Aspartate Amino Transf (AST/SGOT) 34 U/L (15-37) 04/08/24 19:47 Coagulation Panel: No Data to Display Cardiac Panel: No Data to Display Arterial Blood Gas: No Data to Display Venous Blood Gas: No Data to Display Pancreas Panel: No Data to Display Thyroid Panel: No Data to Display Infectious Disease: No Data to Display Blood Cultures: No Data to Display Toxicology Panel: No Data to Display Anesthesia Assessment and Plan Anesthesia History Personal History: No History of Anesthesia Complications Family History: No Family History of Anesthesia Complications Exercise Tolerance Exercise Tolerance: Metabolic Equivalents>4 Pertinent Negatives Pertinent Negatives: No Symptoms of GERD (well controlled with med), No Major Cardiovascular Symptoms or Complaints, No Major Pulmonary Symptoms or Complaints and No History of CVA/TIA Cardiac & Pulmonary Exam Cardiac Exam: Normal S1/S2 Heart Sounds Pulmonary Exam: Clear Bilateral Breath Sounds Implantable Cardiac Device Does patient have a Pacemaker or an ICD?: No Airway Exam Known Difficult Airway: No Mallampati Class: 2 Mouth Opening: Normal (> 3cm) Thyromental Distance: Greater than 3 cm Neck Range of Motion: Full ROM Neck Circumference: Normal Teeth Condition: Normal Dentition ASA Classification ASA Score: ASA 2 Emergency Case?: No NPO Status NPO Status: NPO Clears >2 hours, Solids >8 hours Anesthesia Plan Resuscitation Status: Full Code Anesthesia Technique: General Anesthesia Airway Planned: Endotracheal Tube Monitors Used: Standard Monitors
--- NOTE | 2024-04-17 10:55 | W.PM.HP.N ---
Date of service: 04/17/24 Time of Service: 10:56 Assessment and Plan Assessment and plan (1) Hydronephrosis with renal and ureteral calculous obstruction: Status: Acute Assessment and plan: Given the size of the stone, it is not likely to pass on its own. We recommended cystoscopy, left retrograde pyelogram, left ureteroscopy with holmium laser lithotripsy of his stone. Given the size of the stone and the presence of large nonobstructing stones up in the left kidney, I would expect that we will need a staged procedure. I am hopeful that we can clear the ureteral stone today, but I would expect placing a ureteral stent after the surgery and a return visit to the operating room for flexible ureteroscopy and holmium laser lithotripsy of the kidney stones. History of Present Illness History of Present Illness Chief Complaint: Left ureteral stone Narrative: This is a 59-year-old gentleman who has a past history of kidney stones. He has been able to pass the stones with no surgical intervention. He has had some left lower quadrant and back discomfort for the past month. It became severe last week and he was seen in the emergency department. A CT scan demonstrated a large left distal ureteral stone with hydronephrosis. There were nonobstructing stones up in the left kidney as well. He has had some intermittent discomfort in the left lower quadrant over the past few days. He has no fever or chills. He has no nausea or vomiting. He has no gross hematuria. Review of Systems Narrative: No fevers or chills No vision change or dysphasia No diabetes or thyroid dysfunction No shortness of breath, cough or hemoptysis No chest pain or palpitations GERD. No hepatitis, ulcers, jaundice No seizures, strokes or peripheral neuropathy No bleeding disorders or anemia No gout PFSH All Active Problems Hydronephrosis with renal and ureteral calculous obstruction (Acute) Normal colonoscopy (Acute ~06/21/21) Abdominal pain (Acute) Allergic rhinitis (Acute) GERD (gastroesophageal reflux disease) (Acute) Chronic diarrhea (Acute) LLQ abdominal pain (Acute) Abdominal bloating (Acute) Frequent stools (Acute) Family history of diabetes mellitus (DM) (Acute) Medical History Impotence of organic origin Pain in right shoulder Abdominal pain Low back pain Neck pain Cellulitis of face Hyperplasia of prostate Depressive disorder Muscle spasm Surgical History History of esophagogastroduodenoscopy (EGD) (~06/21/21) History of colonoscopy (~06/21/21) Social History Smoking/Tobacco Use Status: Never Smoking risk assessment performed?: Yes Alcohol Intake: current Alcohol Intake frequency: a few times a week Alcohol type: hard liquor Drug use: Never Substance use type: does not use Housing: house Do you feel safe at home: Yes (UTAP) Do you feel safe in your relationship?: Yes Meds Allergies and Home Medications Allergies Allergy/AdvReac Type Severity Reaction Status Date / Time No Known Allergies Allergy Verified 04/17/24 10:10 Home Medications ?Medication ?Instructions ?Recorded ?Confirmed ?Type dexlansoprazole 30 mg 30 mg PO DAILY 05/18/21 04/17/24 History capsule,biphase delayed release (Dexilant) tamsulosin 0.4 mg capsule (Flomax) 0.4 mg PO DAILY 04/15/24 04/17/24 History Exam Const General: cooperative and comfortable Neck Neck: supple Resp Effort & Inspection: normal respiratory effort Auscultation: clear to auscultation bilaterally Cardio Rate: regular rate Rhythm: regular rhythm GI Palpation: soft and no masses Neuro General: patient alert, patient awake and patient oriented x3 Results Last Vital Signs Temp 36.5 C 04/17/24 10:13 Pulse 75 04/17/24 10:13 Resp 16 04/17/24 10:13 BP 134/99 H 04/17/24 10:13 Pulse Ox 99 04/17/24 10:13 Time Spent Time spent with Patient: <40 minutes Time was spent: other
[2024-04-17] MEDS: ceFAZolin 2 GM/50 ML BAG IVPB (11:13)
[2024-04-17] MEDS: Lidocaine 2% Jelly 6 ML SYR (11:25)
[2024-04-17] MEDS: Omnipaque 300 MG/ML 50 ML BTL (11:30)
--- NOTE | 2024-04-17 12:39 | W.PM.DSUDISC ---
Date of service: 04/17/24 Time of Service: 12:39 Discharge Plan Disposition Patient Disposition: Other Disposition Not Listed Condition: Stable Discharge Details Reason For Visit: ureteral stone Attending Provider: Tru Liu Primary Care Provider: Fabio Arias Home Meds and New Rx's Prescriptions: New tramadol 50 mg tablet 50 mg PO Q6H PRN (Reason: pain) Qty: 20 0RF No Action tamsulosin [Flomax] 0.4 mg capsule 0.4 mg PO DAILY dexlansoprazole [Dexilant] 30 mg capsule,biphase delayed releas 30 mg PO DAILY Discharge Instructions Additional Instructions: No need to strain urine My office will contact you with the date for repeat surgery. At that time, we will remove your ureteral stent and do flexible ureteroscopy to treat your kidney stones. Your ureteral stones have already been treated. As long as a stent is in place, you may notice urinary frequency, urgency and blood in your urine. You may use [id number] Tylenol and ibuprofen along with the prescription for pain medication that I have sent to the pharmacy. Please call our office if you develop fever or chills or if your pain is not controlled with the medications recommended. Stand Alone Forms: Anesthesia Discharge Kaylie Plummer (DSU) Activity:: Activity as Tolerated Shower/Bathe:: 24 hours Diet:: As Tolerated Discharge Data Discharge Comment: discharge to home - no home health services needed DS: Diagnosis Discharge Diagnosis (1) Hydronephrosis with renal and ureteral calculous obstruction: Status: Acute
--- NOTE | 2024-04-17 12:46 | W.PM.OP ---
Date of service: 04/17/24 Time of Service: 12:46 Operative Note Operative Note DATE OF PROCEDURE: 04/17/24 PRE-OP DIAGNOSIS: left ureteral stone POST-OP DIAGNOSIS: same left kidney stones PROCEDURE: Cystoscopy, left retrograde pyelogram, left ureteroscopy with holmium laser lithotripsy of ureteral stone, extraction of stone fragments, insert left ureteral stent SURGEON: Tru Liu ANESTHESIA TYPE: Local By Surgeon and General LMA/ETT Refer to Anesthesia Record ESTIMATED BLOOD LOSS: 5 PATHOLOGY: other (ureteral stones for chemical analysis) Patient's condition: stable Implants: 6 [place] by 22 to 30 cm left ureteral stent Indications: This is a 59-year-old gentleman who has passed kidney stones previously. He has never required surgery For his previous kidney stones. He has had some left lower quadrant and flank pain for the past month or so. The pain became so severe that he presented to the emergency department about a week ago. He was found to have nonobstructing stones in the kidney along with an obstructing stone in the left distal ureter. The stone is quite large and not expected to pass. He presents for ureteroscopy. Findings: Large obstructing left distal ureteral stone Procedure Description: The patient was given preoperative antibiotics and brought to the operating room on 04/17/2024. After successful induction of general anesthesia, he was placed in the dorsal lithotomy position. His genitalia was prepped and draped. 2% Xylocaine jelly was instilled into the urethra to act as a local anesthetic. A 22 [place] rigid cystoscope was then passed through the urethra into the bladder. The urethra and bladder were inspected with 30 degree lens. The pendulous, bulbar and membranous urethra was all appeared normal with no strictures. The prostatic urethra showed lateral lobe enlargement but no significant median lobe. The bladder neck was entered and the bladder mucosa was inspected. The right ureteral orifice appeared normal but the left orifice was a bit edematous. I was able to cannulate the left ureteral orifice with a 5 [place] Island[place] access catheter. A retrograde pyelogram confirmed the presence of a large left distal ureteral stone with a dilated ureter above the level of the stone. I initially attempted to pass a straight Glidewire through the access catheter and up the ureter. I was unable to maneuver the wire above the level of the stone. I then tried again with a angled tipped catheter and was able to maneuver the wire up the remainder of the ureter. I then removed the access catheter and cystoscope and passed a semirigid ureteroscope through the urethra into the bladder. I advanced the scope into the left distal ureter and visualized the left ureteral stone. I then treated the stone with a 365 holmium laser fiber. We used a combination of dusting setting as well as fragmentation setting. Ultimately, we were able to advance the ureteroscope above the level of the stone. I withdrew the scope back into the distal ureter and utilized a Telensius stone basket to secure and remove multiple stone fragments. The largest of these fragments were sent to pathology for chemical analysis. At the completion of the procedure, I did not identify any large stone burden remaining in the distal ureter. We did not treat the kidney stones whatsoever. I then removed the ureteroscope and passed a 6 [place] Island[place] variable length stent over the guidewire. The proximal end of the stent was curled in the renal pelvis and the distal end was curled within the bladder. The positioning of the stent was confirmed both fluoroscopically and cystoscopically. The patient tolerated this procedure well with no complications. We will make arrangements for a repeat procedure to remove his stent and perform flexible ureteroscopy to treat his nonobstructing left kidney stones.
[2024-04-17] MEDS: fentaNYL 100 MCG/2 ML VIAL IVP ×3 (13:23→13:37)
[2024-04-17] MEDS: Phenazopyridine 200 MG TAB PO (13:40)
--- NOTE | 2024-04-17 13:46 | W.ANESPOSTOP ---
Postoperative Evaluation Date, Time and Location Date Performed: 04/17/24 Time Performed: 13:46 Patient Location: PACU Vital Signs Most Recent Imported Vital Signs: Most Recent Vital Signs Temp Pulse Resp BP Pulse Ox 36.4 C L 58 L 11 L 107/77 96 04/17/24 13:41 04/17/24 13:41 04/17/24 13:41 04/17/24 13:41 04/17/24 13:41 Pain Score Most Recent Pain Score: Most Recent Pain Score Pain Level 2 04/17/24 13:42 Assessment Mental Status: Awake (Alert & Oriented to Patient Baseline) Airway and Respiratory Function: Patent airway with normal (patient baseline) respiratory exam Cardiovascular Function: Hemodynamically Stable Hydration Status: Adequately Hydrated Nausea & Vomiting: No Nausea or Vomiting Pain: Pain is tolerable per patient Peripheral Nerve Block: Patient did not receive a nerve block
[2024-04-25 12:05] LABS: Source: Left Ureter
== END 2024-04-17 15:47 | disposition other institution (70) ==
PROVIDERS: PCP Neuromusculoskeletal Medicine & OMM; Visit Provider Urology
PROC: (CPT 52356; principal; 2024-04-17 11:00)
DX: N13.2 Hydronephrosis with renal and ureteral calculous obstruction (principal)
CPT/HCPCS: 52356; 74420; 82365; J0690; J1100; J1885; J2405; J2704; J3010; Q9967

== ENCOUNTER 2024-05-08 09:44 | Day surgery (SDC) | payer MEDICAID, SELFPAY ==
[2024-05-08] VITALS (19 sets, daily range): BP systolic 85–147; BP diastolic 64–93; PULSE 57–68; RESP 13–27; TEMP 36.2–36.8; O2SAT 96–99; BMI 26.9
[2024-05-08] MEDS: Lactated Ringers 1,000 ML 80 ML IV (06:46)
--- NOTE | 2024-05-08 07:00 | W.PM.HP.N ---
Date of service: 05/08/24 Time of Service: 07:00 Assessment and Plan Assessment and plan (1) Multiple kidney stones: Status: Acute Assessment and plan: We will plan to do a cystoscopy and remove the indwelling ureteral stent. We will double check to make sure there is no residual fragments in the distal ureter. We will then plan flexible ureteroscopy and holmium laser lithotripsy to address his upper tract stones. History of Present Illness History of Present Illness Chief Complaint: Left kidney stones Narrative: This is a 59-year-old gentleman who initially presented with renal colic. He was found to have a large obstructing left ureteral stone that was treated with ureteroscopy and holmium laser lithotripsy. His stone analysis showed 100% calcium oxalate monohydrate. We placed a left ureteral stent. He has had stent discomfort and occasional gross hematuria. He is relatively comfortable if he sits quietly, but feels the need to void as soon as he moves. He has no renal colic symptoms. He does have multiple nonobstructing left kidney stones. He presents now for stent removal and ureteroscopy with holmium laser lithotripsy of his left kidney stones. Review of Systems Narrative: No fevers or chills Allergic rhinitis. No vision change or dysphasia No diabetes or thyroid dysfunction No shortness of breath, cough or hemoptysis No chest pain or palpitations GERD. No hepatitis, ulcers, jaundice, diarrhea or constipation No seizures, strokes or peripheral neuropathy No bleeding disorders or anemia No gout PFSH All Active Problems (Updated 05/08/24 @ 07:19 by Tru Liu MD) Multiple kidney stones (Acute) Normal colonoscopy (Acute ~06/21/21) Abdominal pain (Acute) Allergic rhinitis (Acute) GERD (gastroesophageal reflux disease) (Acute) Chronic diarrhea (Acute) LLQ abdominal pain (Acute) Abdominal bloating (Acute) Frequent stools (Acute) Family history of diabetes mellitus (DM) (Acute) Medical History Impotence of organic origin Pain in right shoulder Abdominal pain Low back pain Neck pain Cellulitis of face Hyperplasia of prostate Depressive disorder Muscle spasm Surgical History History of esophagogastroduodenoscopy (EGD) (~11/30/21) History of colonoscopy (~06/21/21) Social History Smoking/Tobacco Use Status: Never Smoking risk assessment performed?: Yes Alcohol Intake: current Alcohol Intake frequency: a few times a week Alcohol type: hard liquor Drug use: Never Substance use type: does not use Housing: house Do you feel safe at home: Yes Do you feel safe in your relationship?: Yes Meds Allergies and Home Medications Allergies Allergy/AdvReac Type Severity Reaction Status Date / Time No Known Allergies Allergy Verified 05/07/24 10:57 Home Medications ?Medication ?Instructions ?Recorded ?Confirmed ?Type dexlansoprazole 30 mg 30 mg PO DAILY 05/18/21 05/08/24 History capsule,biphase delayed release (Dexilant) tamsulosin 0.4 mg capsule (Flomax) 0.4 mg PO DAILY #30 caps 04/17/24 05/08/24 Rx tramadol 50 mg tablet 50 mg PO Q6H PRN pain #20 tabs 04/17/24 05/08/24 Rx Exam Const General: cooperative Neck Neck: supple Resp Effort & Inspection: normal respiratory effort Auscultation: clear to auscultation bilaterally Cardio Rate: regular rate Rhythm: regular rhythm GI Inspection: normal to inspection Palpation: soft Neuro General: patient alert, patient awake and patient oriented x3 Results Last Vital Signs Temp 36.8 C 05/08/24 06:26 Pulse 68 05/08/24 06:26 Resp 16 05/08/24 06:26 BP 147/93 H 05/08/24 06:26 Pulse Ox 99 05/08/24 06:26 Time Spent Time spent with Patient: <40 minutes Time was spent: other
--- NOTE | 2024-05-08 07:16 | ANES.PREOP_ITS ---
General Info Date of Service Date Performed: 05/08/24 Height: 5 ft 9 in Weight: 82.7 kg Body Mass Index (BMI): 26.9 Surgical Procedure: Operation Date: 05/08/24 07:40 Proposed Procedure Side Surgeon p Cystoscopy/Laser/Retrograde/Ureteroscopy with left ureteral stent removal Left Tru Liu MD Meds Allergies and Home Medications Allergies Allergy/AdvReac Type Severity Reaction Status Date / Time No Known Allergies Allergy Verified 05/07/24 10:57 Home Medication ?Medication ?Instructions ?Recorded dexlansoprazole 30 mg 30 mg PO DAILY 05/18/21 capsule,biphase delayed release (Dexilant) tamsulosin 0.4 mg capsule (Flomax) 0.4 mg PO DAILY #30 caps 04/17/24 tramadol 50 mg tablet 50 mg PO Q6H PRN pain #20 tabs 04/17/24 Current Visit Medications: Current Medications Generic Name Dose Route Start Last Admin Trade Name Freq PRN Reason Stop Dose Admin Ringer's Solution 1,000 mls @ 80 mls/hr 05/08/24 06:00 05/08/24 06:46 IV 06/06/24 23:59 80 mls/hr INFUSION MAURI Administration Cefazolin Sodium/Dextrose 2 gm in 50 mls @ 100 mls/hr 05/08/24 06:00 Ancef Duplex IVPB 05/08/24 16:00 PREOP MAURI IV Miscellaneous Supplies 1 each 05/08/24 06:00 Iv Access IV 06/06/24 23:59 DIRECTED MAURI Sodium Chloride 0 ml 05/08/24 06:00 Normal Saline Flush 10 Ml Syr IV 06/06/24 23:59 PRN PRN Sodium Chloride 0 ml 05/08/24 06:00 Normal Saline 10 Ml Vial IJ 06/06/24 23:59 DIRECTED PRN Sterile Water 0 ml 05/08/24 06:00 Water,Injection,Sterile 10 Ml Vial IJ 06/06/24 23:59 DIRECTED PRN PFSH Active Problems Active Problems: Problem Status Onset Code Normal colonoscopy Acute ~06/21/21 Abdominal pain Acute R10.9 Allergic rhinitis Acute J30.9 GERD (gastroesophageal reflux disease) Acute K21.9 Chronic diarrhea Acute K52.9 LLQ abdominal pain Acute R10.32 Abdominal bloating Acute R14.0 Frequent stools Acute K52.9 Family history of diabetes mellitus (DM) Acute Z83.3 Medical History Medical History Impotence of organic origin Pain in right shoulder Abdominal pain Low back pain Neck pain Cellulitis of face Hyperplasia of prostate Depressive disorder Muscle spasm Surgical History Surgical History History of esophagogastroduodenoscopy (EGD) (~06/21/21) History of colonoscopy (~06/21/21) Tobacco Smoking/Tobacco Use Status: Never Alcohol Alcohol Intake: current Alcohol intake frequency: a few times a week Alcohol type: hard liquor Substance Use Substance use: Never Substance use type: does not use Vital Signs and Lab Results Vital Signs Most Recent Vital Signs in EMR: Most Recent Vital Signs Temp Pulse Resp BP Pulse Ox 36.8 C 68 16 147/93 H 99 05/08/24 06:26 05/08/24 06:26 05/08/24 06:26 05/08/24 06:26 05/08/24 06:26 Lab Results Blood Type / Crossmatch: No Data to Display Complete Blood Count: White Blood Count 9.61 10^3/uL (4.4-10.8) 04/08/24 19:47 Red Blood Count 5.03 10^6/uL (4.36-5.78) 04/08/24 19:47 Hemoglobin 15.8 g/dL (13.5-17.5) 04/08/24 19:47 Hematocrit 45.5 % (40.0-50.0) 04/08/24 19:47 Platelet Count 212 10^3/uL (130-400) 04/08/24 19:47 Complete Metabolic Panel: Sodium 143 mmol/L (136-145) 04/08/24 19:47 Potassium 4.2 mmol/L (3.5-5.1) 04/08/24 19:47 Chloride 107 mmol/L (98-107) 04/08/24 19:47 Carbon Dioxide 26.5 mmol/L (21.0-32.0) 04/08/24 19:47 BUN 21 mg/dL (7-18) H 04/08/24 19:47 Creatinine 1.3 mg/dL (0.70-1.30) 04/08/24 19:47 Est GFR (CKD-EPI 2020) 63.68 (mL/min/1.73m2) 04/08/24 19:47 Calcium 9.7 mg/dL (8.5-10.1) 04/08/24 19:47 Albumin 4.2 g/dL (3.4-5.0) 04/08/24 19:47 Glucose 155 mg/dL (74-106) H 04/08/24 19:47 Liver Function Panel: Alanine Aminotransferase (ALT/SGPT) 66 U/L (16-63) H 04/08/24 1 9:47 Aspartate Amino Transf (AST/SGOT) 34 U/L (15-37) 04/08/24 19:47 Coagulation Panel: No Data to Display Cardiac Panel: No Data to Display Arterial Blood Gas: No Data to Display Venous Blood Gas: No Data to Display Pancreas Panel: No Data to Display Thyroid Panel: No Data to Display Infectious Disease: No Data to Display Blood Cultures: No Data to Display Toxicology Panel: No Data to Display Anesthesia Assessment and Plan Anesthesia History Personal History: No History of Anesthesia Complications Family History: No Family History of Anesthesia Complications Exercise Tolerance Exercise Tolerance: Metabolic Equivalents>4 Pertinent Negatives Pertinent Negatives: No Symptoms of GERD (well controlled with meds, taken this am), No Major Cardiovascular Symptoms or Complaints, No Major Pulmonary Symptoms or Complaints and No History of CVA/TIA Cardiac & Pulmonary Exam Cardiac Exam: Normal S1/S2 Heart Sounds Pulmonary Exam: Clear Bilateral Breath Sounds Implantable Cardiac Device Does patient have a Pacemaker or an ICD?: No Airway Exam Known Difficult Airway: No Mallampati Class: 2 Mouth Opening: Normal (> 3cm) Thyromental Distance: Greater than 3 cm Neck Range of Motion: Full ROM Neck Circumference: Normal Teeth Condition: Normal Dentition ASA Classification ASA Score: ASA 2 Emergency Case?: No NPO Status NPO Status: NPO Clears >2 hours, Solids >8 hours Anesthesia Plan Resuscitation Status: Full Code Anesthesia Technique: General Anesthesia Airway Planned: Endotracheal Tube Monitors Used: Standard Monitors
[2024-05-08] MEDS: ceFAZolin 2 GM/50 ML BAG IVPB (07:33)
[2024-05-08] MEDS: Omnipaque 300 MG/ML 50 ML BTL (07:50)
[2024-05-08] MEDS: Lidocaine 2% Jelly 6 ML SYR (07:50)
--- NOTE | 2024-05-08 08:39 | DI.RAD_ITS ---
Exam(s) XR RETROGRADE IN OR EXAM: XR RETROGRADE IN OR CLINICAL HISTORY: Left kidney stones TECHNIQUE: 2D and realtime digital imaging was performed. CONTRAST MATERIAL: Refer to procedure report. COMPARISON: No exams were available for comparison FINDINGS: Fluoroscopy was provided for Dr. Liu during the performance of a retrograde evaluation of the jennifer l collecting system. Please refer to the procedure report for complete details. Ka,r=4.98 mGy IMPRESSION: RADIATION DOSE DELIVERED: 0.0 0.0 0
--- NOTE | 2024-05-08 08:55 | W.PM.DSUDISC ---
Date of service: 05/08/24 Time of Service: 08:55 Discharge Plan Disposition Patient Disposition: Home Discharge Details Reason For Visit: kidney stones Attending Provider: Tru Liu Primary Care Provider: Fabio Arias Home Meds and New Rx's Prescriptions: No Action tamsulosin [Flomax] 0.4 mg capsule 0.4 mg PO DAILY Qty: 30 0RF dexlansoprazole [Dexilant] 30 mg capsule,biphase delayed releas 30 mg PO DAILY tramadol 50 mg tablet 50 mg PO Q6H PRN (Reason: pain) Qty: 20 0RF Discharge Instructions Additional Instructions: No need to strain the urine Follow-up with me in about 6 to 8 weeks. We will do a renal ultrasound in the office and review your stone chemistry and prevention measures. I did not leave a stent in place after today's surgery. You may have some left flank pain due to swelling caused by the surgery. I would expect the pain to improve within 48 to 72 hours as the swelling subsides. Activity:: Activity as Tolerated Shower/Bathe:: 24 hours Diet:: As Tolerated Discharge Orders Discharge Orders: Discharge Order (Routine); Ordered 05/08/24 Ordered By: Tru Liu DS: Diagnosis Discharge Diagnosis (1) Multiple kidney stones: Status: Acute
--- NOTE | 2024-05-08 08:59 | ROE_ITS ---
Date of service: 05/08/24 Time of Service: 08:59 Operative Note Operative Note DATE OF PROCEDURE: 05/08/24 PRE-OP DIAGNOSIS: Left kidney stones POST-OP DIAGNOSIS: same PROCEDURE: Cystoscopy, remove left ureteral stent, left retrograde pyelogram, left flexible ureteroscopy with holmium laser lithotripsy and extraction of stone fragments SURGEON: Tru Liu ANESTHESIA TYPE: Local By Surgeon and General LMA/ETT Refer to Anesthesia Record ESTIMATED BLOOD LOSS: 5 PATHOLOGY: other (Stones for chemical analysis) COMPLICATIONS: None Patient was transported to: PACU Patient's condition: stable Implants: none Indications: This is a 59-year-old gentleman who was initially seen with a large left distal ureteral stone. He was treated with ureteroscopy and holmium laser lithotripsy. His stone composition was 100% calcium oxalate monohydrate. At the time of his initial surgery, he also had left kidney stones that were nonobstructing. We did not treat both stones with his initial surgery, but did place a left ureteral stent. He presents now for stent removal, flexible ureteroscopy and treatment of his kidney stones. Findings: Multiple nonobstructing stones in the left kidney Procedure Description: The patient was given preoperative IV antibiotics and brought to the operating room on 05/08/2024. After successful induction of general anesthesia, he was placed in the dorsal lithotomy position. His genitalia was prepped and draped. 2% Xylocaine jelly was instilled into the urethra to act as a local anesthetic. A 22 [place] rigid cystoscope was passed through the urethra into the bladder. The urethra and bladder were inspected with the 30 degree lens. The pendulous, bulbar and membranous urethra all appeared normal with no strictures. The prostatic urethra showed some mild lateral lobe enlargement but no significant median lobe. The bladder neck was entered and the stent could be seen protruding from the left ureteral orifice. Marked edematous changes were seen around the orifice. The stent was grasped with alligator forceps and brought out to the level of the urethral meatus. A guidewire was then advanced through the lumen of the stent and the wire was advanced up the left ureter. The stent was removed in its entirety leaving the wire in place. A dual-lumen catheter was advanced over the wire and a retrograde pyelogram was obtained by injecting Omnipaque through the second lumen of the catheter under fluoroscopic guidance. We were able to outline some filling defects in multiple calyces. We then passed a second guidewire through the dual-lumen catheter. We chose one of the wires as a working wire and the second as a safety wire. We removed the dual-lumen catheter and advanced a ureteral access sheath over the working wire. The safety wire remained in place. Flexible ureteroscopy was then performed and each of the calyces were inspected. A stone was seen in the upper pole calyx and was grasped and a 0 tip stone basket and removed in its entirety. A second stone was found in a lower pole calyx and was likewise grasped and removed. In the midpole calyx, there was a much larger stone present. We treated the midpole stone using the 272 ?m holmium laser. We used dusting settings and once the stone had decreased in size, we were able to grasp the remaining fragment and a 0 tip stone basket and remove the fragments in their entirety. All stone fragments were sent to pathology for chemical analysis. Reinspection of the calyces showed no large stone burden. We withdrew the ureteral access sheath and inspected the remainder of the ureter on withdrawal of the ureteroscope. No ureteral injuries or retained ureteral stones were identified. We then elected not to place a ureteral stent following this procedure. All scopes and instruments were removed. The patient tolerated this procedure well with no complications.
[2024-05-08] MEDS: Phenazopyridine 200 MG TAB PO (09:51)
[2024-05-08] MEDS: traMADol 50 MG TAB PO (09:51)
--- NOTE | 2024-05-08 10:33 | W.ANESPOSTOP ---
Postoperative Evaluation Date, Time and Location Date Performed: 05/08/24 Time Performed: 09:40 Patient Location: Day Surgery Unit Vital Signs Most Recent Imported Vital Signs: Most Recent Vital Signs Temp Pulse Resp BP Pulse Ox 36.3 C L 63 16 98/78 L 99 05/08/24 09:53 05/08/24 09:53 05/08/24 09:53 05/08/24 09:53 05/08/24 09:53 Pain Score Most Recent Pain Score: Most Recent Pain Score Pain Level 7 05/08/24 09:53 Assessment Mental Status: Awake (Alert & Oriented to Patient Baseline) Airway and Respiratory Function: Patent airway with normal (patient baseline) respiratory exam Cardiovascular Function: Hemodynamically Stable Hydration Status: Adequately Hydrated Nausea & Vomiting: No Nausea or Vomiting Pain: Pain is tolerable per patient (describes discomfort as urinary burning) Peripheral Nerve Block: Patient did not receive a nerve block
[2024-05-15 21:37] LABS: Source: Right Kidney
== END 2024-05-08 09:45 | disposition home or self-care (01) ==
LOC: SUR 05-16 09:44
PROVIDERS: PCP Neuromusculoskeletal Medicine & OMM; Visit Provider Urology
PROC: (CPT 52353; principal; 2024-05-08 07:30)
DX: N20.0 Calculus of kidney (principal)
CPT/HCPCS: 52353; 74420; 82365; J0690; J1100; J1885; J2003; J2405; J2704; Q9967